=== PATIENT | female | born 1990 | race Caucasian/White ===

== ENCOUNTER 2017-04-28 07:34 | Outpatient (CLI) | payer OTHER ==
[~2017-04-28] VITALS: Ht 160 cm; Wt 65.8 kg
[2017-04-28 07:59] VITALS: BP 110/81
[2017-04-28] MEDS ORDERED: COSYNTROPIN 0.25 MG/ML (CORTROSYN) VIAL IV ONE (08:15)
[2017-04-28 10:03] VITALS: BP 110/81
== END 2017-04-28 10:03 | disposition home or self-care (01) ==
LOC: LAB 07:34 → SDC 10:03
PROVIDERS: ATTEND Internal Medicine
DX: I95.1 Orthostatic hypotension (principal); E27.8 Other specified disorders of adrenal gland
CPT/HCPCS: 36415; 82533; 96372

== ENCOUNTER → 2017-12-01 | Outpatient (CLI) | payer OTHER ==
[2017-12-01 15:24] LABS: ALANINE AMINOTRANSFERASE 13 U/L (0-55); ALBUMIN 4.2 GM/DL (3.2-4.5); ALKALINE PHOSPHATASE 39 U/L (40-136); BILIRUBIN,TOTAL 0.3 MG/DL (0.1-1.0); BUN/CREATININE RATIO 16; CARBON DIOXIDE 25 MMOL/L (21-32); CHLORIDE 107 MMOL/L (98-107); CREATININE SERUM 0.75 MG/DL (0.60-1.30); GFR ESTIMATED > 60; GLUCOSE 93 MG/DL (70-105); POTASSIUM 3.4 MMOL/L (3.6-5.0); SODIUM 137 MMOL/L (135-145)
[2017-12-01 15:45] LABS: FREE T4 (FREE THYROXINE) 0.96 NG/DL (0.70-1.48)
== END ==
LOC: LAB 14:27
PROVIDERS: ATTEND Nurse Practitioner Family
DX: E03.9 Hypothyroidism, unspecified (principal); Z33.1 Pregnant state, incidental
CPT/HCPCS: 36415; 80053; 84144; 84439; 84443; 84481; 84702; 86376; 86800

== ENCOUNTER → 2018-03-16 | Outpatient (CLI) | payer BC, OTHER ==
--- NOTE | 2018-03-16 17:38 | Diagnostic Imaging Report ---
INDICATION: anatomical assessment. TECHNIQUE: Multiple real-time grayscale images were obtained over the gravid uterus. COMPARISON: None. FINDINGS: Single viable intrauterine currently in a breech presentation. There is normal amount of amniotic fluid. Placenta is positioned anteriorly and without evidence for previa. anatomical structures including the visualized portion of the kidneys, bladder, stomach, intracranial structures, four-chamber heart, three-vessel cord and cord insertion site appearing unremarkable. However, the spine is not well visualized. Maternal adnexa not visualized. Biometrical measurements are as follows: Biparietal 4.77 cm, age 20 weeks 3 days. Head circumference 18.34 cm, age 20 weeks 5 days. Abdominal circumference 15.09 cm, age 20 weeks 3 days. Femur length 3.30 cm, age 20 weeks 3 days. Sonographic estimate age: 20 weeks 4 days. Sonographic estimated date of delivery: 07/30/2018. Estimated Weight: 349 gm (+/- 51 gm). LMP percentile: 67%. heart rate: 139 beats per minute. number: 1 of 1. IMPRESSION: 1. Single viable intrauterine currently in a breech presentation. Sonographic estimated age 20 weeks 4 days for an estimated date of delivery 07/30/2018. 2. No abnormalities noted at this time. However, the spine is not well evaluated at this time. Dictated by: Dictated on workstation # [id number]
== END ==
LOC: RAD 15:09
PROVIDERS: ATTEND Obstetrics & Gynecology
DX: Z36.89 Encounter for other specified antenatal screening (principal); Z3A.20 20 weeks gestation of pregnancy
CPT/HCPCS: 76805

== ENCOUNTER 2018-07-27 09:33 | Outpatient (CLI) | payer BC ==
[~2018-07-27] VITALS: Ht 160 cm; Wt 89.5 kg
--- NOTE | 2018-07-27 09:27 | NUR ---
Arrived to unit ambulates self with c/o decreased movement. Wt obtained and to room 319. gowned and urine sample obtained. to bed and monitors on. Oriented to room, call light and surroundings. Plan of care reviewed with pt.
[2018-07-27] MEDS ORDERED: PREN-53 PO (10:00)
[2018-07-27] MEDS ORDERED: LEVO75TA PO (10:00)
--- NOTE | 2018-07-27 10:04 | NUR ---
Dr Carter called and notified of pt arrival, contractions, fhr pattern, sve. Will monitor over next hour and re-check cervix. Plan of care reviewed with pt.
--- NOTE | 2018-07-27 11:08 | NUR ---
Dr Carter notified of repeat sve, contractions, fhr pattern reactive. new order received.
--- NOTE | 2018-07-27 11:10 | NUR ---
Options discussed with pt and mother. pt requests discharge to home.
--- NOTE | 2018-07-27 11:20 | NUR ---
Discharge instructions explained, signed and copy to patient. pt verbalized understanding of instructions and questions answered.
--- NOTE | 2018-07-27 11:25 | NUR ---
Discharged to home. ambulates self downstairs with belongings in hand. Downstairs to private vehicle with belongings in hand.
== END 2018-07-27 11:25 | disposition home or self-care (01) ==
LOC: WSo 09:33 → LDRP 09:33 → WSo 11:25
PROVIDERS: ATTEND Obstetrics & Gynecology
DX: O36.8130 Decreased fetal movements, third trimester, not applicable or unspecified (principal); Z3A.39 39 weeks gestation of pregnancy
CPT/HCPCS: 99213

== ENCOUNTER 2018-08-02 06:40 | Inpatient (IN) | payer BC ==
[~2018-08-02] VITALS: Ht 160 cm; Wt 87.7 kg
[2018-08-02] VITALS (66 sets, daily range): BP systolic 91–137; BP diastolic 46–87
[~2018-08-02 06:40] MED LIST: LEVO75TA PO; PREN-53 PO
--- NOTE | 2018-08-02 06:40 | NUR ---
MACARIO PATEL presented to unit via ambulation from ED/home, accompanied by , for INDUCTION. MACARIO PATEL weighed, gowned, voided, and to bed. EFHM and TOCO applied, VS taken. MACARIO PATEL oriented to bed controls, call light, TV, heat, and A/C controls.
--- OUTSIDE RECORDS SUMMARY | 2018-08-02 06:44 | XMS REPORT ---
Author Author BETITO NAVA [facility] Address [address] [place] [address] Care Team Providers Care Barrel Charrer Name Role Phone ELIJAH BETITO Unavailable PROBLEMS Type Condition ICD9-CM Code [id number] Code Onset Dates Condition Status SNOMED Code Problem Missed period N92.6 Active 93908511 Problem BLADIMIR II (cervical intraepithelial neoplasia II) N87.1 Active 558971040 Problem Cervical high risk human papillomavirus (HPV) DNA test positive R87.810 Active 942761437 Problem Acquired hypothyroidism E03.9 Active 044010704 ALLERGIES No Information ENCOUNTERS Encounter Location Date Diagnosis [facility] [id number] [place] [phone] Dec, Encounter for immunization Z23 [facility] [id number] [place] [id number] 10 Nov, 2017 Missed period N92.6 [facility] [id number] [place] [phone] 16 Jul, 2017 [facility] [id number] [place] [phone] 15 Jul, 2017 BLADIMIR II (cervical intraepithelial neoplasia II) N87.1 and Right lower quadrant abdominal pain R10.31 [facility] [address] [place] [id number] 14 Jul, 2017 Right lower quadrant abdominal pain R10.31 [facility] [id number] [place] [phone] 02 Jul, 2017 [facility] [address] [place] [phone] Jun, Cervical high risk human papillomavirus (HPV) DNA test positive R87.810 and Atypical squamous cells of undetermined significance on cytologic smear of cervix (ASC-US) R87.610 [facility] [address] [facility] [id number] [address] 30 May, 2017 Encounter for surveillance of contraceptive pills Z30.41 [facility] [address] [facility] [id number], [place] [address] May, Well woman exam with routine gynecological exam Z01.419 and Encounter for surveillance of contraceptive pills Z30.41 [facility] [address] [facility] [id number] [id number] Feb, Acute pansinusitis, recurrence not specified J01.40 IMMUNIZATIONS Vaccine Route Administration Date Status FLULAVAL QUAD 0.5ML (6 MO & UP) 2018 IM Intramuscular Jan 03, 2018 Administered SOCIAL HISTORY Never Assessed REASON FOR VISIT Flu shot PLAN OF CARE VITAL SIGNS MEDICATIONS Unknown Medications RESULTS No Results PROCEDURES Procedure Date Ordered Result Body Site FLULAVAL QUAD 0.5ML (6 MO AND UP) 2017Jan 03, 2018 SINGLE IMMUNIZATION ADMIN Jan 03, 2018 INSTRUCTIONS MEDICATIONS ADMINISTERED No Known Medications MEDICAL (GENERAL) HISTORY Type Description Date Medical History hypothryroid
--- OUTSIDE RECORDS SUMMARY | 2018-08-02 06:44 | XMS REPORT ---
Author Author ELDA FERGUSON Organization [facility] Address [address] [place] [address] Care Team Providers Care Board Hammer Operator Name Role Phone ELDA FERGUSON Unavailable PROBLEMS Type Condition ICD9-CM Code [id number]-UQ Code Onset Dates Condition Status SNOMED Code Problem Missed period N92.6 Active 03883092 Problem BLADIMIR II (cervical intraepithelial neoplasia II) N87.1 Active 084497441 Problem Cervical high risk human papillomavirus (HPV) DNA test positive R87.810 Active 502261892 Problem Acquired hypothyroidism E03.9 Active 096701089 ALLERGIES No Information ENCOUNTERS Encounter Location Date Diagnosis [facility] [id number] [id number] Nov, Missed period N92.6 [facility] [address] [address] July, [facility] [id number] [place] [address] 15 Jul, 2017 BLADIMIR II (cervical intraepithelial neoplasia II) N87.1 and Right lower quadrant abdominal pain R10.31 [facility] [id number] [id number] July, Right lower quadrant abdominal pain R10.31 [facility] [address] [address] July, [facility] [id number] [place] [address] Jun, Cervical high risk human papillomavirus (HPV) DNA test positive R87.810 and Atypical squamous cells of undetermined significance on cytologic smear of cervix (ASC-US) R87.610 [facility] [id number] [address] 30 May, 2017 Encounter for surveillance of contraceptive pills Z30.41 [facility] [address] [facility] [id number], [place] [address] May, Well woman exam with routine gynecological exam Z01.419 and Encounter for surveillance of contraceptive pills Z30.41 [facility] [address] [facility] [id number] [id number] Feb, Acute pansinusitis, recurrence not specified J01.40 IMMUNIZATIONS No Known Immunizations SOCIAL HISTORY Never Assessed REASON FOR VISIT test-[facility] [employer]NAGER [employer]/HOME IMPROVEMENT ADVISOR PLAN OF CARE VITAL SIGNS MEDICATIONS Unknown Medications RESULTS Name Result Date Reference Range TEST, URINE (IN HOUSE) RESULTS positive Lot # [id number] Control + Exp date 2019-06-13 PROCEDURES Procedure Date Ordered Result Body Site URINE TEST Nov 22, 2017 INSTRUCTIONS MEDICATIONS ADMINISTERED No Known Medications MEDICAL (GENERAL) HISTORY Type Description Date Medical History hypothryroid
--- OUTSIDE RECORDS SUMMARY | 2018-08-02 06:44 | XMS REPORT ---
Author Author DAYA Garcia [facility] Address [address] [place] [address] Care Team Providers Care Video Production Assistant Name Role Phone DAYA Garcia Unavailable PROBLEMS Type Condition ICD9-CM Code RCF61-SI Code Onset Dates Condition Status SNOMED Code Problem BLADIMIR II (cervical intraepithelial neoplasia II) N87.1 Active 201489664 Problem Cervical high risk human papillomavirus (HPV) DNA test positive R87.810 Active 548674155 Problem Acquired hypothyroidism E03.9 Active 100600529 ALLERGIES No Information ENCOUNTERS Encounter Location Date Diagnosis [place] [id number] [place] [address] July, [place] [id number] [place] [address] July, BLADIMIR II (cervical intraepithelial neoplasia II) N87.1 and Right lower quadrant abdominal pain R10.31 [facility] [id number] [place] [id number] July, Right lower quadrant abdominal pain R10.31 [place] [id number] [place] [address] July, [place] [id number] [place] [address] Jun, Cervical high risk human papillomavirus (HPV) DNA test positive R87.810 and Atypical squamous cells of undetermined significance on cytologic smear of cervix (ASC-US) R87.610 [place] [id number] [place] [address] May, Encounter for surveillance of contraceptive pills Z30.41 [place] [id number] [place] [address] May, Well woman exam with routine gynecological exam Z01.419 and Encounter for surveillance of contraceptive pills Z30.41 [facility] [address] [facility] [id number] [place] [phone] Feb, Acute pansinusitis, recurrence not specified J01.40 IMMUNIZATIONS No Known Immunizations SOCIAL HISTORY Never Assessed REASON FOR VISIT urinary sx PLAN OF CARE VITAL SIGNS MEDICATIONS Medication Instructions Dosage Frequency Start Date End Date Duration Status Cipro 500 MG Orally every 12 hrs 1 tablet 12h July, July, 10 day(s) Active RESULTS No Results PROCEDURES No Known procedures INSTRUCTIONS MEDICATIONS ADMINISTERED No Known Medications MEDICAL (GENERAL) HISTORY Type Description Date Medical History hypothryroid
--- OUTSIDE RECORDS SUMMARY | 2018-08-02 06:44 | XMS REPORT ---
Author Author GINNY JAK [facility] Address [address] [place] [address] Care Team Providers Care Armature Inspector Name Role Phone GINNYMARCEL BLAIRHANY Unavailable PROBLEMS Type Condition ICD9-CM Code CWO81-[id number] Code Onset Dates Condition Status SNOMED Code Problem BLADIMIR II (cervical intraepithelial neoplasia II) N87.1 Active 626149590 Problem Cervical high risk human papillomavirus (HPV) DNA test positive R87.810 Active 422201322 Problem Acquired hypothyroidism E03.9 Active 892231723 ALLERGIES No Known Allergies ENCOUNTERS Encounter Location Date Diagnosis [place] [id number] [place] [phone] July, [place] [address] [phone] 15 Jul, 2017 BLADIMIR II (cervical intraepithelial neoplasia II) N87.1 and Right lower quadrant abdominal pain R10.31 [facility] [id number] [place] [phone] July, Right lower quadrant abdominal pain R10.31 [place] [id number] [place] [address] July, [place] [address] [address] Jun, Cervical high risk human papillomavirus (HPV) DNA test positive R87.810 and Atypical squamous cells of undetermined significance on cytologic smear of cervix (ASC-US) R87.610 [place] [id number] [place] [address] May, Encounter for surveillance of contraceptive pills Z30.41 [place] [id number] [place] [address] May, Well woman exam with routine gynecological exam Z01.419 and Encounter for surveillance of contraceptive pills Z30.41 [facility] [address] [facility] [id number] [place] [phone] Feb, Acute pansinusitis, recurrence not specified J01.40 IMMUNIZATIONS No Known Immunizations SOCIAL HISTORY Never Assessed REASON FOR VISIT BLADIMIR 2--tcuppettRN PLAN OF CARE Activity Details Follow Up 4 Weeks Reason: VITAL SIGNS Height 63.5 in 2017-07-27 Weight 146.1 lbs 2017-07-27 Temperature 98.5 degrees Fahrenheit 2017-07-27 Heart Rate 76 bpm 2017-07-27 Respiratory Rate 20 2017-07-27 BMI 25.47 kg/m2 2017-07-27 Blood pressure systolic 110 mmHg 2017-07-27 Blood pressure diastolic 70 mmHg 2017-07-27 MEDICATIONS Medication Instructions Dosage Frequency Start Date End Date Duration Status Sprintec 28 0.25-35 MG-MCG Orally Once a day 1 tablet 24h May, 28 day(s) Active Levothyroxine Sodium 25 MCG Orally Once a day 1 tablet on an empty stomach in the morning 24h Active RESULTS No Results PROCEDURES No Known procedures INSTRUCTIONS MEDICATIONS ADMINISTERED No Known Medications MEDICAL (GENERAL) HISTORY Type Description Date Medical History hypothryroid
--- OUTSIDE RECORDS SUMMARY | 2018-08-02 06:45 | XMS REPORT ---
Author Author GINNY JAK [facility] Address [address] [place] [address] Care Team Providers Care Regional Property Manager Name Role Phone GINNYMARCEL BLAIRHANY Unavailable PROBLEMS Type Condition ICD9-CM Code [id number]-[id number] Code Onset Dates Condition Status SNOMED Code Problem BLADIMIR II (cervical intraepithelial neoplasia II) N87.1 Active 614223238 Problem Cervical high risk human papillomavirus (HPV) DNA test positive R87.810 Active 148543949 Problem Acquired hypothyroidism E03.9 Active 740043205 ALLERGIES No Information ENCOUNTERS Encounter Location Date Diagnosis [place] [id number] [place] [address] July, [place] [address] [address] 15 Jul, 2017 BLADIMIR II (cervical intraepithelial neoplasia II) N87.1 and Right lower quadrant abdominal pain R10.31 [facility] [id number] [place] [phone] July, Right lower quadrant abdominal pain R10.31 [place] [id number] [place] [address] July, [place] [address] [address] Jun, Cervical high risk human papillomavirus (HPV) DNA test positive R87.810 and Atypical squamous cells of undetermined significance on cytologic smear of cervix (ASC-US) R87.610 [place] [id number] [place] [address] May, Encounter for surveillance of contraceptive pills Z30.41 [facility] [id number] [place] [address] May, Well woman exam with routine gynecological exam Z01.419 and Encounter for surveillance of contraceptive pills Z30.41 [facility] [address] [facility] [id number] [place] [phone] Feb, Acute pansinusitis, recurrence not specified J01.40 IMMUNIZATIONS No Known Immunizations SOCIAL HISTORY Never Assessed REASON FOR VISIT Revenue Accountant Hx Updated PLAN OF CARE VITAL SIGNS MEDICATIONS Unknown Medications RESULTS No Results PROCEDURES No Known procedures INSTRUCTIONS MEDICATIONS ADMINISTERED No Known Medications MEDICAL (GENERAL) HISTORY Type Description Date Medical History hypothryroid
--- OUTSIDE RECORDS SUMMARY | 2018-08-02 06:45 | XMS REPORT ---
Author Author SERAFIN STONE [facility] Address [address] [place] [address] Care Team Providers Care Liner Replacer Name Role Phone SERAFIN STONE Unavailable PROBLEMS Type Condition ICD9-CM Code KTH84-SP Code Onset Dates Condition Status SNOMED Code Problem BLADIMIR II (cervical intraepithelial neoplasia II) N87.1 Active 134295009 Problem Cervical high risk human papillomavirus (HPV) DNA test positive R87.810 Active 596601583 Problem Acquired hypothyroidism E03.9 Active 376196616 ALLERGIES No Known Allergies ENCOUNTERS Encounter Location Date Diagnosis [id number] [place] [address] July, [place] [id number] [place] [address] July, BLADIMIR II (cervical intraepithelial neoplasia II) N87.1 and Right lower quadrant abdominal pain R10.31 [facility] [id number] [place] [id number] July, Right lower quadrant abdominal pain R10.31 [place] [address] [place] [address] July, [facility] [id number] [place] [address] Jun, Cervical high risk human papillomavirus (HPV) DNA test positive R87.810 and Atypical squamous cells of undetermined significance on cytologic smear of cervix (ASC-US) R87.610 [place] [id number] [place] [address] May, Encounter for surveillance of contraceptive pills Z30.41 [place] [id number] [place] [address] May, Well woman exam with routine gynecological exam Z01.419 and Encounter for surveillance of contraceptive pills Z30.41 [facility] [address] [facility] [id number] [place] [phone] Feb, Acute pansinusitis, recurrence not specified J01.40 IMMUNIZATIONS No Known Immunizations SOCIAL HISTORY Never Assessed REASON FOR VISIT pap/ control JStrasserRN PLAN OF CARE Activity Details Follow Up prn Reason: Pending Test PAP REFLEX TO HPV IF ASCUS VITAL SIGNS Height 63.5 in 2017-06-10 Weight 139.2 lbs 2017-06-10 Temperature 98.2 degrees Fahrenheit 2017-06-10 Heart Rate 80 bpm 2017-06-10 Respiratory Rate 20 2017-06-10 BMI 24.27 kg/m2 2017-06-10 Blood pressure systolic 100 mmHg 2017-06-10 Blood pressure diastolic 70 mmHg 2017-06-10 MEDICATIONS Medication Instructions Dosage Frequency Start Date End Date Duration Status [place] Thyroid Active Sprintec 28 0.25-35 MG-MCG Orally Once a day 1 tablet 24h May, 28 day(s) Active Sprintec 28 Active RESULTS No Results PROCEDURES Procedure Date Ordered Result Body Site Bacterial Vaginosis In House June 10, 2017 CULTURE, BACTERIA, OTHER June 10, 2017 SPECIMEN HANDLING June 10, 2017 INSTRUCTIONS MEDICATIONS ADMINISTERED No Known Medications MEDICAL (GENERAL) HISTORY Type Description Date Medical History hypothryroid
--- OUTSIDE RECORDS SUMMARY | 2018-08-02 06:45 | XMS REPORT ---
Author Author SERAFIN STONE [facility] Address [address] [place] [address] Care Team Providers Care Screen Printing Supervisor Name Role Phone SERAFIN STONE Unavailable PROBLEMS Type Condition ICD9-CM Code PJM27-RE Code Onset Dates Condition Status SNOMED Code Problem BLADIMIR II (cervical intraepithelial neoplasia II) N87.1 Active 155595471 Problem Cervical high risk human papillomavirus (HPV) DNA test positive R87.810 Active 545912722 Problem Acquired hypothyroidism E03.9 Active 276547063 ALLERGIES No Information ENCOUNTERS Encounter Location Date Diagnosis [place] [id number] [place] [address] July, [place] [address] [address] 15 Jul, 2017 BLADIMIR II (cervical intraepithelial neoplasia II) N87.1 and Right lower quadrant abdominal pain R10.31 [facility] [id number] [place] [phone] July, Right lower quadrant abdominal pain R10.31 [place] [id number] [place] [address] July, [facility] [id number] [place] [address] Jun, Cervical high risk human papillomavirus (HPV) DNA test positive R87.810 and Atypical squamous cells of undetermined significance on cytologic smear of cervix (ASC-US) R87.610 [place] [address] [place] [address] May, Encounter for surveillance of contraceptive pills Z30.41 [facility] [id number] [place] [address] May, Well woman exam with routine gynecological exam Z01.419 and Encounter for surveillance of contraceptive pills Z30.41 [facility] [place] [facility] [place] [address] [facility] [id number] [place] [phone] Feb, Acute pansinusitis, recurrence not specified J01.40 IMMUNIZATIONS No Known Immunizations SOCIAL HISTORY Never Assessed REASON FOR VISIT medication PLAN OF CARE VITAL SIGNS MEDICATIONS Medication Instructions Dosage Frequency Start Date End Date Duration Status Metronidazole 500 mg Orally Twice a day 1 tablet 12h May, Jun, 10 day(s) Active Sprintec 28 0.25-35 MG-MCG Orally Once a day 1 tablet 24h May, 28 day(s) Active RESULTS No Results PROCEDURES No Known procedures INSTRUCTIONS MEDICATIONS ADMINISTERED No Known Medications MEDICAL (GENERAL) HISTORY Type Description Date Medical History hypothryroid
--- OUTSIDE RECORDS SUMMARY | 2018-08-02 06:45 | XMS REPORT ---
Author Author DAYA CLINE [facility] Address [address] [place] [address] Care Team Providers Care Glass Calibrator Name Role Phone LAWRENCE CLINEYL Unavailable PROBLEMS Type Condition ICD9-CM Code [id number] Code Onset Dates Condition Status SNOMED Code Problem BLADIMIR II (cervical intraepithelial neoplasia II) N87.1 Active 480935079 Problem Cervical high risk human papillomavirus (HPV) DNA test positive R87.810 Active 746168186 Problem Acquired hypothyroidism E03.9 Active 629627041 ALLERGIES No Known Allergies ENCOUNTERS Encounter Location Date Diagnosis [place] [id number] [place] [phone] July, [place] [id number] [place] [phone] 15 Jul, 2017 BLADIMIR II (cervical intraepithelial neoplasia II) N87.1 and Right lower quadrant abdominal pain R10.31 [facility] [id number] [place] [phone] July, Right lower quadrant abdominal pain R10.31 [place] [id number] [place] [phone] July, [place] [id number] [place] [phone] Jun, Cervical high risk human papillomavirus (HPV) DNA test positive R87.810 and Atypical squamous cells of undetermined significance on cytologic smear of cervix (ASC-US) R87.610 [place] [id number] [place] [phone] May, Encounter for surveillance of contraceptive pills Z30.41 [place] [id number] [place] [phone] May, Well woman exam with routine gynecological exam Z01.419 and Encounter for surveillance of contraceptive pills Z30.[address] [facility] [address] [facility] [id number] [place] [phone] Feb, Acute pansinusitis, recurrence not specified J01.40 IMMUNIZATIONS Vaccine Route Administration Date Status DEPO MEDROL 80 MG/ML IM Intramuscular Mar 01, 2017 Administered SOCIAL HISTORY Never Assessed REASON FOR VISIT sinus drainage/sore throat Garrett LOPEZ PLAN OF CARE Activity Details Follow Up prn Reason: VITAL SIGNS Height 63.5 in 2017-03-01 Weight 149.0 lbs 2017-03-01 Temperature 98.7 degrees Fahrenheit 2017-03-01 Heart Rate 75 bpm 2017-03-01 Respiratory Rate 18 2017-03-01 BMI 25.98 kg/m2 2017-03-01 Blood pressure systolic 98 mmHg 2017-03-01 Blood pressure diastolic 56 mmHg 2017-03-01 MEDICATIONS Medication Instructions Dosage Frequency Start Date End Date Duration Status Sprintec 28 Active Williamson Thyroid Active RESULTS No Results PROCEDURES Procedure Date Ordered Result Body Site DEPO MEDROL 80 MG/ML Mar 01, 2017 THER/PROPH/DIAG INJ, SC/IM Mar 01, 2017 INSTRUCTIONS MEDICATIONS ADMINISTERED No Known Medications MEDICAL (GENERAL) HISTORY Type Description Date Medical History hypothryroid
--- OUTSIDE RECORDS SUMMARY | 2018-08-02 06:45 | XMS REPORT ---
Author Author GINNY JAK [facility] Address [address] [place] [address] Care Team Providers Care Cat And Dog Bather Name Role Phone GINNYMARCEL BLAIRHANY Unavailable PROBLEMS Type Condition ICD9-CM Code [id number] Code Onset Dates Condition Status SNOMED Code Problem BLADIMIR II (cervical intraepithelial neoplasia II) N87.1 Active 998091421 Problem Cervical high risk human papillomavirus (HPV) DNA test positive R87.810 Active 038234752 Problem Acquired hypothyroidism E03.9 Active 342499930 ALLERGIES No Known Allergies ENCOUNTERS Encounter Location Date Diagnosis [place] [id number] [place] [phone] July, [place] [address] [phone] 15 Jul, 2017 BLADIMIR II (cervical intraepithelial neoplasia II) N87.1 and Right lower quadrant abdominal pain R10.31 [facility] [id number] [place] [phone] July, Right lower quadrant abdominal pain R10.31 [place] [id number] [place] [phone] July, [place] [address] [phone] Jun, Cervical high risk human papillomavirus (HPV) DNA test positive R87.810 and Atypical squamous cells of undetermined significance on cytologic smear of cervix (ASC-US) R87.610 [place] [id number] [place] [phone] May, Encounter for surveillance of contraceptive pills Z30.41 [place] [id number] [place] [phone] May, Well woman exam with routine gynecological exam Z01.419 and Encounter for surveillance of contraceptive pills Z30.41 [facility] [place] [facility] [place] [address] [facility] [id number] [place] [phone] Feb, Acute pansinusitis, recurrence not specified J01.40 IMMUNIZATIONS No Known Immunizations SOCIAL HISTORY Never Assessed REASON FOR VISIT ASCUS , HPV +---CarleyleachVT PLAN OF CARE Activity Details Follow Up prn Reason: VITAL SIGNS Height 63.5 in 2017-07-07 Weight 143.2 lbs 2017-07-07 Temperature 98.5 degrees Fahrenheit 2017-07-07 Heart Rate 90 bpm 2017-07-07 Respiratory Rate 20 2017-07-07 BMI 24.97 kg/m2 2017-07-07 Blood pressure systolic 114 mmHg 2017-07-07 Blood pressure diastolic 78 mmHg 2017-07-07 MEDICATIONS Medication Instructions Dosage Frequency Start Date End Date Duration Status Sprintec 28 0.25-35 MG-MCG Orally Once a day 1 tablet 24h May, 28 day(s) Active Levothyroxine Sodium 25 MCG Orally Once a day 1 tablet on an empty stomach in the morning 24h Active RESULTS No Results PROCEDURES Procedure Date Ordered Result Body Site URINE TEST July 07, 2017 BX/CURETT OF CERVIX W/SCOPE July 07, 2017 INSTRUCTIONS MEDICATIONS ADMINISTERED No Known Medications MEDICAL (GENERAL) HISTORY Type Description Date Medical History hypothryroid
--- OUTSIDE RECORDS SUMMARY | 2018-08-02 06:45 | XMS REPORT ---
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.1 Active 897275363 Problem Cervical high risk human papillomavirus (HPV) DNA test positive R87.810 Active 197475983 Problem Acquired hypothyroidism E03.9 Active 891460515 ALLERGIES No Known Allergies ENCOUNTERS Encounter Location Date Diagnosis [place] [id number] [place] [phone] July, [place] [id number] [place] [phone] 15 Jul, 2017 BLADIMIR II (cervical intraepithelial neoplasia II) N87.1 and Right lower quadrant abdominal pain R10.31 [facility] [id number] [place] [phone] 14 Jul, 2017 Right lower quadrant abdominal pain R10.31 [place] [id number] [place] [phone] July, [place] [id number] [place] [phone] Jun, Cervical high risk human papillomavirus (HPV) DNA test positive R87.810 and Atypical squamous cells of undetermined significance on cytologic smear of cervix (ASC-US) R87.610 [place] [id number] [place] [phone] May, Encounter for surveillance of contraceptive pills Z30.41 [place] [id number] [place] [phone] May, Well woman exam with routine gynecological exam Z01.419 and Encounter for surveillance of contraceptive pills Z30.41 [facility] [place] [facility] [place] [address] [facility] [id number] [place], [place] [id number] Feb, Acute pansinusitis, recurrence not specified J01.40 IMMUNIZATIONS No Known Immunizations SOCIAL HISTORY Never Assessed REASON FOR VISIT R lower quadrant pain-[facility] 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 OF CARE Activity Details Follow Up 2 - 3 Days Reason: VITAL SIGNS Height 63.5 in 2017-07-26 Weight 145 lbs 2017-07-26 Temperature 98 degrees Fahrenheit 2017-07-26 Heart Rate 82 bpm 2017-07-26 Respiratory Rate 18 2017-07-26 BMI 25.28 kg/m2 2017-07-26 Blood pressure systolic 120 mmHg 2017-07-26 Blood pressure diastolic 68 mmHg 2017-07-26 MEDICATIONS Medication Instructions Dosage Frequency Start Date End Date Duration Status Levothyroxine Sodium 25 MCG Orally Once a day 1 tablet on an empty stomach in the morning 24h Active Sprintec 28 0.25-35 MG-MCG Orally Once a day 1 tablet 24h May, 28 day(s) Active RESULTS No Results PROCEDURES Procedure Date Ordered Result Body Site URINE CULTURE/COLONY COUNT July 26, 2017 URINALYSIS, AUTO, W/O SCOPE July 26, 2017 INSTRUCTIONS MEDICATIONS ADMINISTERED No Known Medications MEDICAL (GENERAL) HISTORY Type Description Date Medical History hypothryroid
[2018-08-02] MEDS ORDERED: D5 LR IV SOLUTION 1,000 ML IV ONE (08:11)
[2018-08-02] MEDS: D5 LR IV SOLUTION 1,000 ML IV SCH ×3 (08:15→23:52)
--- NOTE | 2018-08-02 08:16 | History & Physical-OB ---
OB - Chief Complaint & HPI Date/Time Date of Admission: Date of Admission: August 02, 2018 at 06:40 Date seen by a Provider: August 02, 2018 Time Seen by a Provider: 08:00 Chief Complaint/History OB-Reason for Admission/Chief: Induction of Labor Hx : 2 Hx Para: 1 Expected Date of Delivery: August 03, 2018 Gestational Age in Weeks: 39 Gestational Age in Days: 6 Admission Nurse Assessment Rev: Yes History of Labs see prenatals Allergies and Home Medications Allergies Coded Allergies: No Known Drug Allergies (Verified , 10/22/08) Home Medications Levothyroxine Sodium 75 Mcg Tablet, 75 MCG PO DAILY, (Reported) Odz182/Iron Fumarate/FA/Dss 1 Each Tablet, 1 EACH PO DAILY, (Reported) Patient Home Medication List Home Medication List Reviewed: Yes OB - History Hx of Present Care: Yes Ultrasounds: Normal mid trimester US Obstetrical Complications: None Medical Complications: None Delivery History Hx Blood Disorders: No Patient Past Medical History n/a OB - Admission Exam Physical Exam HEENT: NCAT Heart: Rhythm Normal Lungs: Clear Abdomen: Gravid Extremities: Normal Reflexes: Normal Cervical Dilatation: 3cm Effacement: 75% Station: -2 Membranes: Intact Heart Rate: 130's Accelerations: Accelerations Present Decelerations: No Decelerations Short Term Variability: Present Care Home Variability: Average (6-25) Contractions on Admission: 6-10 Minutes Apart Intensity: Moderate OB - Assessment/Plan/Diagnosis Assessment Assessment: induction of labor Admission Dx 28 yo @ 39 weeks Elective induction of labor GBS neg Admission Status: Inpatient Order (span 2 midnights) Reason for Inpatient Admission: Induction of labor at term Plan Induction Method: LIDIA GRANADOS DO August 02, 2018 08:16
[2018-08-02 08:30] LABS: BASOPHILS % (AUTO) 0 % (0-10); EOSINOPHILS # (AUTO) 0.1 10^3/uL (0.0-0.3); EOSINOPHILS % (AUTO) 1 % (0-10); HEMATOCRIT 31 % (35-52); HEMOGLOBIN 9.9 G/DL (11.5-16.0); LYMPHOCYTES # (AUTO) 2.1 X 10^3 (1.0-4.0); LYMPHOCYTES % (AUTO) 20 % (12-44); MEAN CORPUSCULAR HEMOGLOBIN 23 PG (25-34); MEAN CORPUSCULAR HGB CONC 32 G/DL (32-36); MEAN CORPUSCULAR VOLUME 71 FL (80-99); MEAN PLATELET VOLUME 9.7 FL (7.4-10.4); MONOCYTES # (AUTO) 0.7 X 10^3 (0.0-1.0); MONOCYTES % (AUTO) 7 % (0-12); NEUTROPHILS # (AUTO) 7.2 X 10^3 (1.8-7.8); NEUTROPHILS % (AUTO) 72 % (42-75); PLATELET COUNT 248 10^3/uL (130-400); RED CELL DISTRIBUTION WIDTH 15.1 % (10.0-14.5); WHITE BLOOD COUNT 10.1 10^3/uL (4.3-11.0)
[2018-08-02] MEDS ORDERED: OXYTOCIN/NORMAL SALINE 500 ML IV SCH (10:58)
[2018-08-02] MEDS ORDERED: CATHETER FLUSH 10 ML SYR IV SCH (14:00)
[2018-08-02] MEDS ORDERED: BUPIVACAINE 0.25% 30 ML (SENSORCAINE) VIAL ONE (14:55)
[2018-08-02] MEDS ORDERED: fentaNYL INJECTION 100 MCG/2 ML AMP ONE (14:55)
[2018-08-02] MEDS ORDERED: SUFENTA 0.6MCG/ML BUPIVA 0.125 100 ML ONE (15:00)
[2018-08-02] MEDS ORDERED: LACTATED RINGERS 1,000 ML IV ONE (15:01)
[2018-08-02] MEDS ORDERED: CATHETER FLUSH 10 ML SYR IV PRN (15:15)
[2018-08-02] MEDS ORDERED: NALOXONE 0.4 MG/ML 1 ML (NARCAN) VIAL IV PRN (15:15)
[2018-08-02] MEDS: EPIDURAL (SUFENTA 0.6MCG/ML BUPIVA 0.125%) 100 ML BAG EPI SCH (15:38)
[2018-08-02] MEDS ORDERED: CALCIUM CARBONATE 500 MG (TUMS) TAB.CHEW PO NR (17:00)
[2018-08-03] VITALS (28 sets, daily range): BP systolic 102–147; BP diastolic 58–96
[2018-08-03] MEDS ORDERED: CALCIUM CARBONATE 500 MG (TUMS) TAB.CHEW PO ONE (01:00)
[2018-08-03] MEDS: EPIDURAL (SUFENTA 0.6MCG/ML BUPIVA 0.125%) 100 ML BAG EPI SCH (01:30)
[2018-08-03] MEDS ORDERED: LIDOCAINE/EPI 2% 1:200,00 (XYLOCAINE) 10 ML VIAL ONE (02:08)
[2018-08-03] MEDS ORDERED: TERBUTALINE INJ 1 MG/ML (BRETHINE) AMP ONE (03:20)
[2018-08-03] MEDS: LACTATED RINGERS 1,000 ML IV PRN ×2 (03:25→04:20)
[2018-08-03] MEDS ORDERED: AMPICILLIN FOR IV USE 2,000 MG VIAL ONE (03:31)
[2018-08-03] MEDS ORDERED: ceFAZolin 2 GM/50 ML NS 50 ML ONE (03:32)
[2018-08-03] MEDS ORDERED: CITRIC ACID/SOB CIT (BICITRA) 30 ML UDC ONE (03:33)
[2018-08-03] MEDS ORDERED: FAMOTIDINE 20MG/2ML IV (PEPCID) ONE (03:33)
[2018-08-03] MEDS ORDERED: METOCLOPRAMIDE INJ 10 MG/2 ML (REGLAN) ONE (03:33)
--- NOTE | 2018-08-03 03:45 | Progress Note-Pre Operative ---
Pre-Operative Progress Note H&P Reviewed The H&P was reviewed, patient examined and no changes noted. Date Seen by Provider: August 03, 2018 Time Seen by Provider: 03:00 Date H&P Reviewed: August 03, 2018 Time H&P Reviewed: 03:00 Pre-Operative Diagnosis: intolerance of 2nd stage labor, OP LIDIA BEVERLY DO August 03, 2018 03:45
[2018-08-03] MEDS ORDERED: OXYTOCIN/NORMAL SALINE 500 ML IV SCH (03:48)
--- NOTE | 2018-08-03 03:56 | Discharge Inst-Women's Service ---
Discharge Inst-Women's Serv Depart Medication/Instructions New, Converted or Re-Newed RX: RX on Chart Final Diagnosis POD 2 PLTCS Consults/Follow Up Additional Follow Up: Yes Orders/Referrals Dr. Carter in 7-10 days, and in 6 weeks. Activity Activity: Activity as Tolerated Driving Instructions: No Driving for 1 Week NO SMOKING: NO SMOKING Nothing Inside Vagina: No Douching, No [place], No Tampons Diet Discharge Diet: No Restrictions Symptoms to Report to : Bleeding Excessive, Pain Increased, Fever Over 101 Degrees F, Questions/Concerns For Any Problems or Questions: Contact Your Physician Skin/Wound Care Infection Signs and Symptoms: Increased Redness, Foul Odor of Wound, Increased Drainage, Skin Itchy or Has a Rash, Increased Swelling, Temperature Above 101 F Operative Area Clean and Dry: Keep Incision Clean/Dry Stitches/Holly/Dermabond: Dermabond, Care of Stitches Bathing Instructions: LIDIA Brock DO August 03, 2018 03:56
[2018-08-03] MEDS ORDERED: fentaNYL INJECTION 100 MCG/2 ML AMP ONE (03:57)
[2018-08-03] MEDS ORDERED: ACHD5005 PO (03:59)
[2018-08-03] MEDS ORDERED: IBUP-844 PO (03:59)
[2018-08-03] MEDS ORDERED: DOCU100C37 PO (03:59)
[2018-08-03] MEDS ORDERED: TETANUS,DIPTH,PERTUSS P/F (BOOSTRIX) 0.5 ML VIAL IM SCH (04:00)
[2018-08-03] MEDS ORDERED: MEASLES,MUMPS,RUBELLA 1 EA INJ SC SCH (04:00)
[2018-08-03] MEDS ORDERED: ceFAZolin 2 GM/50 ML NS 50 ML IV ONE (04:00)
[2018-08-03] MEDS ORDERED: BUPIVACAINE 0.5% 30 ML (SENSORCAINE) VIAL ONE (04:12)
[2018-08-03] MEDS ORDERED: LIDOCAINE PF 2% 5 ML (XYLOCAINE) VIAL ONE (04:12)
[2018-08-03] MEDS ORDERED: ONDANSETRON 4 MG/2 ML (SDV) Z0FRAN ONE (04:12)
[2018-08-03] MEDS ORDERED: METHYLERGONOVINE 0.2 MG/ML (METHERGINE) AMP ONE (04:29)
[2018-08-03] MEDS ORDERED: OXYTOCIN (PITOCIN) 10 UNIT/ML VIAL ONE ×2 (04:47→05:03)
[2018-08-03] MEDS ORDERED: fentaNYL INJECTION 100 MCG/2 ML AMP IVP ONE (05:15)
[2018-08-03] MEDS ORDERED: morphine INJ 10 MG/ML 1ML (SYR OR VIAL) IVP ONE (05:15)
[2018-08-03] MEDS ORDERED: MEPERIDINE (DEMEROL) INJ 50 MG/ML IVP ONE (05:15)
[2018-08-03] MEDS ORDERED: ONDANSETRON 4 MG/2 ML (SDV) Z0FRAN IVP PRN (05:15)
[2018-08-03] MEDS ORDERED: METOCLOPRAMIDE INJ 10 MG/2 ML (REGLAN) IV ONE (05:30)
[2018-08-03] MEDS ORDERED: CATHETER FLUSH 10 ML SYR IV PRN (05:30)
[2018-08-03] MEDS ORDERED: TERBUTALINE INJ 1 MG/ML (BRETHINE) AMP SC ONE (05:30)
[2018-08-03] MEDS ORDERED: FAMOTIDINE 20MG/2ML IV (PEPCID) IV ONE (05:30)
[2018-08-03] MEDS ORDERED: CITRIC ACID/SOB CIT (BICITRA) 30 ML UDC PO ONE (05:30)
--- NOTE | 2018-08-03 05:35 | OPERATIVE REPORT ---
DATE OF SERVICE: PREOPERATIVE DIAGNOSES: 1. A 28-year-old G2, P1 at 40 weeks' gestation. 2. intolerance of labor. 3. Occiput posterior. POSTOPERATIVE DIAGNOSES: 1. A 28-year-old G2, P1 at 40 weeks' gestation. 2. intolerance of labor. 3. Occiput posterior. 4. Nuchal cord x1. PROCEDURE: Primary low transverse section. SURGEON: Daniel Beverly DO ANESTHESIA: Epidural, which was bolused. ESTIMATED BLOOD LOSS: 600 mL. URINE OUTPUT: 50 mL clear at the end of the procedure. FLUIDS: 1100 mL of lactate Ringer solution. FINDINGS: A live female weighing 7 pounds 7 ounces, Apgars of 8 and 9. Grossly normal-appearing uterus, bilateral fallopian tubes and ovaries. INDICATIONS FOR PROCEDURE: This patient was brought in earlier this morning for induction of labor at 2 to 3 cm. AROM was performed and Pitocin augmentation was implemented to achieve an adequate contraction pattern. She received an epidural on this afternoon for pain management and progressed to what the nurses had evaluated as complete and -1 station when I was contacted at 2:00 a.m. The nurse had concerned with a rapid descent due to a heart rate variable decelerations. Therefore, I proceeded to the hospital where I evaluated the patient and found the patient's cervix to be 9 cm dilated with an anterior lip and -1 station with each contraction, there was a severe drop in the heart rate down into the 40s or 50s with acute resolution. We did attempt pushing, but this only worsened the circumstances and there was a prolonged deceleration approximately 2 minutes long with a contraction that occurred at its miriam shortly after the contraction down to the 50s. Anesthesia and OR staff was contacted to present emergently due to distress. I turned off the Pitocin and gave terbutaline to the patient, which did resolve the deceleration and as the contractions stopped and the variable decelerations did stop; however, I did discuss with the patient the intolerance of the second stage of labor and pushing and how that she was still fairly remote from delivery and I recommended proceeding with at that point. Risk of the procedure was discussed with the patient in detail including risk of bleeding, infection, damaging surrounding structures including the , possible need for blood transfusion, possible hysterectomy and even . After everything was discussed with the patient in detail, consent was obtained in the preoperative area and the patient was taken to the operating room. OPERATIVE REPORT IN DETAIL: Once in the operating room, epidural analgesia was bolused and found to be adequate. She was placed in the supine position with the leftward tilt, prepped and draped in normal sterile fashion. Timeout was performed and anesthesia tested. A Pfannenstiel skin incision was then made with a knife and carried down the layer of fascia using Bovie cautery. Fascial incision extended laterally using Bovie cautery. The superior aspect of the fascial incision was then grasped with Sarah clamps, tented upward and dissected off the underlying rectus muscle. Inferior aspect of the fascial incision was then grasped with Sarah clamps, tented upward and dissected off the underlying rectus muscle. Rectus muscle was then dissected down the midline using Ferrer scissors, which exposed the peritoneum, which was entered bluntly and extended using blunt traction. Mikey ring retractor was then placed in the peritoneal incision, which offers excellent lateral sidewall retraction. Identified the lower uterine segment, which was found to be thinned out and make an incision through the vesicouterine peritoneum and bluntly dissected off of the lower uterine segment. I proceeded with myotomy until I am able to visualize the membranes, which I then enter bluntly and extended using blunt traction on the uterine incision. The infant was found in the vertex presentation, occiput posterior. With gentle fundal pressure, the 's head was elevated the incision where the nares and oropharynx were bulb suctioned. Nuchal cord was reduced x1. Anterior and posterior shoulders were delivered. was then brought to the operative field where the cord was doubly clamped and cut and infant was handed off to waiting nurses in attendance. Cord blood was collected. Three-vessel cord with intact placenta delivered spontaneously thereafter. IV Pitocin was initiated to facilitate uterine contraction. Uterine fundus became firmer with bimanual massage. The uterus was then exteriorized and cleared of all endometrial clots and debris. I then proceeded with closing the uterine incision using 0 Vicryl suture in a running locked fashion. A second layer of imbricating 0 Monocryl was placed. Excellent hemostasis was noted after doing this; however, there was a significant amount of uterine atony noted. A 0.2 mg of Methergine were given IM at that point and atony improved shortly thereafter with uterine massage. The uterus was then placed back within the pelvis. The pelvis was copiously irrigated using normal saline. Once again, there was no active bleeding noted from any of my dissection plane. I placed Interceed antiadhesive over my low transverse incision and proceeded with closing the peritoneum after removing the Mikey retractor. The peritoneum was reapproximated using 3-0 Vicryl suture in a running fashion. The rectus muscles reapproximated using 3-0 Vicryl suture in interrupted fashion. The fascia was reapproximated using 0 Vicryl suture in running fashion. The subcutaneous tissue was reapproximated using 3-0 plain in an interrupted subcutaneous stitch and the skin was reapproximated using 4-0 Monocryl in a running subcuticular. Dermabond was applied to incision and sterile dressing with adhesive white tape. The patient tolerated the procedure well and was taken to recovery area in stable condition. Lap and sponge count was correct at the end of the procedure. Instrument count was correct as well. Two grams of Ancef given preoperatively for infection prophylaxis. Job ID: [id number] DocumentID: [id number] Dictated Date: 08/03/2018 05:01:28 Bobbin Doffer Date: 08/03/2018 05:34:48 Dictated By: DANIEL BEVERLY DO
[2018-08-03] MEDS ORDERED: KETOROLAC 30 MG/ML VIAL ONE (05:48)
--- NOTE | 2018-08-03 05:50 | NUR ---
pt transferred to room 306 per bed accompanied by monty pacu, rn. Received report from Monty Garrido RN. Pt in bed smiling with infant skin to skin. Pitocin and LR running per gravity. IV converted to pump tubing. pitocin running at 125 ml/hr. scd's on. info papers given. ff u/1. Sprite and water given. Will monitor closely.
[2018-08-03] MEDS ORDERED: CATHETER FLUSH 10 ML SYR IV SCH (06:00)
[2018-08-03] MEDS: IBUPROFEN 600 MG (MOTRIN) TAB PO SCH ×3 (06:05→20:07)
--- NOTE | 2018-08-03 06:30 | NUR ---
Pt in room with family at bedside. denies needs.
--- NOTE | 2018-08-03 06:45 | NUR ---
New bag pit hung. Pt requesting for infant to go to nursery so she can rest. VSS. ff u/1. Minimal rubra. Pt requested to change pad later. Will pass on to next shift. Pt denies needs. lights dimmed. will monitor closely.
[2018-08-03] MEDS: DOCUSATE SODIUM 100 MG (COLACE) CAP PO SCH ×2 (08:40→20:07)
[2018-08-03] MEDS: HYDROcodone/APAP 5 MG/325 MG (LORTAB) TAB PO PRN (09:35)
--- NOTE | 2018-08-03 12:29 | Anesthesia-Regional Post-Op ---
Regional Patient Condition Mental Status: Alert, Oriented x3 Circulation: Same as Pre-Op Headache: Absent Sensation: Full Recovery Motor Block: Absent Post Op Complications Complications None Follow Up Care/Instructions Patient Instructions None needed. Anesthesia/Patient Condition Patient is doing well, no complaints, stable vital signs, no apparent adverse anesthesia problems. No complications reported per nursing. DIONTE RICE CRNA August 03, 2018 12:29
--- NOTE | 2018-08-03 17:50 | NUR ---
ASSISTED MOM WITH WITH A SHIELD. FED ON RIGHT BREAST X7 MINUTES AND WAS AT 7 MINUTES ON LEFT BREAST WHEN LEFT PT. FAMILY AT BEDSIDE.
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
--- NOTE | 2018-08-03 20:45 | NUR ---
Pt back to room at this time.
[2018-08-04 01:00] VITALS: BP 110/65
--- NOTE | 2018-08-04 01:00 | NUR ---
Pt alert sitting up in rocker with .
[2018-08-04] MEDS: HYDROcodone/APAP 5 MG/325 MG (LORTAB) TAB PO PRN (01:03)
[2018-08-04] MEDS: IBUPROFEN 600 MG (MOTRIN) TAB PO SCH ×4 (02:17→20:59)
--- NOTE | 2018-08-04 03:00 | NUR ---
Infant back to BF, but not interested, back to nsy while pt sleeps.
[2018-08-04 05:38] LABS: BASOPHILS % (AUTO) 0 % (0-10); EOSINOPHILS # (AUTO) 0.1 10^3/uL (0.0-0.3); EOSINOPHILS % (AUTO) 1 % (0-10); HEMATOCRIT 24 % (35-52); HEMOGLOBIN 7.4 G/DL (11.5-16.0); LYMPHOCYTES # (AUTO) 1.8 X 10^3 (1.0-4.0); LYMPHOCYTES % (AUTO) 15 % (12-44); MEAN CORPUSCULAR HEMOGLOBIN 23 PG (25-34); MEAN CORPUSCULAR HGB CONC 32 G/DL (32-36); MEAN CORPUSCULAR VOLUME 72 FL (80-99); MONOCYTES # (AUTO) 0.8 X 10^3 (0.0-1.0); MONOCYTES % (AUTO) 7 % (0-12); NEUTROPHILS % (AUTO) 77 % (42-75); PLATELET COUNT 213 10^3/uL (130-400); RED CELL DISTRIBUTION WIDTH 15.1 % (10.0-14.5); WHITE BLOOD COUNT 11.6 10^3/uL (4.3-11.0)
[2018-08-04 06:00] VITALS: BP 108/69
--- NOTE | 2018-08-04 06:05 | NUR ---
Infant taken back to room at this time.
[2018-08-04 08:20] VITALS: BP 112/67
[2018-08-04] MEDS: FERROUS SULF 325 MG (IRON) TAB PO SCH ×2 (08:25→20:59)
[2018-08-04] MEDS: DOCUSATE SODIUM 100 MG (COLACE) CAP PO SCH ×2 (08:25→20:59)
--- NOTE | 2018-08-04 09:51 | Postpartum Progress Note ---
Note Note Day # 1 Subjective: Patient is without complaints. Ambulating, voiding. Tolerating a regular diet without nausea or vomiting. Normal lochia. Pain is well controlled with oral pain medications. Objective: Physical Exam: General - Alert and oriented, no apparent distress Abdomen - Soft, appropriately tender to palpation, non-distended, fundus firm at umbilicus Extremities - no edema, negative Kesha's bilaterally Incision- c/d/i Assessment: POD 1 PLTCS Acute blood loss anemia Plan: Routine care. Encourage breast feeding. Encourage ambulation. Ferrous sulfate supplementation. Plan for discharge tomorrow Vitals - Labs Vital Signs - I&O Vital Signs Date Time Temp Pulse Resp B/P (MAP) Pulse Ox O2 Delivery O2 Flow Rate FiO2 08/04/18 06:00 98.1 84 18 108/69 (82) 99 Room Air 08/04/18 01:00 97.7 71 18 110/65 (80) Room Air 08/03/18 21:45 Room Air 08/03/18 20:05 98.2 90 18 107/68 (81) 98 Room Air 08/03/18 17:15 99.0 89 18 113/58 (76) 98 Room Air 08/03/18 14:00 98.0 77 18 116/74 (88) 100 Room Air I & O 08/04/18 07:00 Intake Total 2525 ml Output Total 680 ml Balance 1845 ml Labs Laboratory Tests 08/04/18 05:20: White Blood Count 11.6H, Red Blood Count 3.25L, Hemoglobin 7.4#L, Hematocrit 24L , Mean Corpuscular Volume 72L, Mean Corpuscular Hemoglobin 23L, Mean Corpuscular Hemoglobin Concent 32, Red Cell Distribution Width 15.1H, Platelet Count 213, Mean Platelet Volume 9.0, Neutrophils (%) (Auto) 77H, Lymphocytes (%) (Auto) 15, Monocytes (%) (Auto) 7, Eosinophils (%) (Auto) 1, Basophils (%) (Auto) 0, Neutrophils # (Auto) 9.0H, Lymphocytes # (Auto) 1.8, Monocytes # (Auto) 0.8, Eosinophils # (Auto) 0.1, Basophils # (Auto) 0.0 LIDIA BEVERLY DO August 04, 2018 09:51
[2018-08-04] MEDS ORDERED: DOCUSATE CALCIUM 240 MG (SURFAK) CAP PO SCH (18:45)
[2018-08-04] MEDS ORDERED: BISACODYL 5 MG (DULCOLAX) TABLET PO PRN (20:45)
[2018-08-04] MEDS ORDERED: BISACODYL 5 MG (DULCOLAX) TABLET PO ONE (20:49)
[2018-08-04 21:00] VITALS: BP 100/71
[2018-08-05 02:57] VITALS: BP 101/71
[2018-08-05] MEDS: IBUPROFEN 600 MG (MOTRIN) TAB PO SCH ×2 (02:57→09:59)
[2018-08-05] MEDS: HYDROcodone/APAP 5 MG/325 MG (LORTAB) TAB PO PRN (02:57)
--- NOTE | 2018-08-05 08:25 | NUR ---
Dr. Carter here to see patient. New orders received.
[2018-08-05] MEDS ORDERED: DOCUSATE CALCIUM 240 MG (SURFAK) CAP PO SCH (09:00)
--- NOTE | 2018-08-05 09:08 | Postpartum Progress Note ---
Note Note Day # 2 Subjective: Patient is without complaints. Ambulating, voiding. Tolerating a regular diet without nausea or vomiting. Normal lochia. Pain is well controlled with oral pain medications. Objective: Physical Exam: General - Alert and oriented, no apparent distress Abdomen - Soft, appropriately tender to palpation, non-distended, fundus firm at umbilicus Extremities - no edema, negative Kesha's bilaterally Incision- c/d/i Assessment: POD 2 PLTCS Acute blood loss anemia Plan: Routine care. Encourage breast feeding. Encourage ambulation. Ferrous sulfate supplementation. Plan for discharge today Vitals - Labs Vital Signs - I&O Vital Signs Date Time Temp Pulse Resp B/P (MAP) Pulse Ox O2 Delivery O2 Flow Rate FiO2 08/05/18 02:57 98.2 76 18 101/71 (81) 99 Room Air 08/04/18 21:00 98.0 84 18 100/71 (81) 99 Room Air I & O 08/05/18 07:00 Intake Total 500 ml Balance 500 ml LIDIA BEVERLY DO August 05, 2018 09:08
[2018-08-05] MEDS: FERROUS SULF 325 MG (IRON) TAB PO SCH (09:59)
[2018-08-05] MEDS: DOCUSATE SODIUM 100 MG (COLACE) CAP PO SCH (09:59)
[2018-08-05 10:03] VITALS: BP 118/65
--- NOTE | 2018-08-05 10:03 | NUR ---
AM shift assessment completed and vital signs obtained, see interventions. Plan of care reviewed with patient. Patient verbalizes understanding and questions answered. Scheduled Motrin, Iron, and Colace PO given. Patient denies any further needs or concerns at this time.
--- NOTE | 2018-08-05 12:22 | NUR ---
Discharge instructions and medications reviewed with patient both written and verbally. Patient verbalizes understanding and questions answered. Written prescriptions given to patient.
--- NOTE | 2018-08-05 13:55 | NUR ---
Patient discharged at this time and ambulated down to awaiting private vehicle accompanied by this RN. No signs or symptoms of distress noted.
== END 2018-08-05 13:55 | disposition home or self-care (01) | DRG 787 ==
LOC: LDRP 06:40 → WS 16:06 → LDRP 16:06 → WS 08-03 05:20
PROVIDERS: ADMIT Obstetrics & Gynecology; ATTEND Obstetrics & Gynecology
PROC: 10907ZC Drainage of Amniotic Fluid, Therapeutic from Products of Conception, Via Natural or Artificial Opening (ICD-10-PCS; 2018-08-02)
PROC: 10D00Z1 Extraction of Products of Conception, Low, Open Approach (ICD-10-PCS; principal; 2018-08-03 04:06)
DX: O76 Abnormality in fetal heart rate and rhythm complicating labor and delivery (principal); O64.0XX0 Obstructed labor due to incomplete rotation of fetal head, not applicable or unspecified; O69.81X0 Labor and delivery complicated by cord around neck, without compression, not applicable or unspecified; O90.81 Anemia of the puerperium; D62 Acute posthemorrhagic anemia; Z37.0 Single live birth; Z3A.39 39 weeks gestation of pregnancy
CPT/HCPCS: 36415; 85025; 86850; 86900; 86901; 88307; 94664

== ENCOUNTER → 2019-04-03 | Outpatient (CLI) | payer BC ==
[~2019-04-03] MED LIST changes: +ACHD5005 PO; +DOCU100C37 PO; +IBUP-844 PO
--- NOTE | 2019-04-03 13:40 | Diagnostic Imaging Report ---
PROCEDURE: US Thyroid. TECHNIQUE: Multiple real-time grayscale images were obtained of the thyroid in various projections. INDICATION: Hypothyroidism. FINDINGS: Right lobe of the thyroid measures 5.3 x 1.9 x 2.0 cm and the left lobe measures 4.7 x 1.6 x 2.0 cm. Isthmus is 5 mm in thickness. Both lobes show marked parenchymal heterogeneity. No discrete thyroid mass is identified. IMPRESSION: Thyroid heterogeneity. No discrete mass is detected. Dictated by: Dictated on workstation # [id number]
== END ==
LOC: RAD 13:06
PROVIDERS: ATTEND Nurse Practitioner Family
DX: E03.8 Other specified hypothyroidism (principal)
CPT/HCPCS: 76536

== ENCOUNTER → 2022-03-03 | Outpatient (CLI) | payer BC ==
--- NOTE | 2022-03-03 14:55 | Diagnostic Imaging Report ---
INDICATION: OB ultrasound. TECHNIQUE: Multiple Real-time grayscale images were obtained over the gravid uterus. COMPARISON: None. FINDINGS: Single live intrauterine fetus. Transverse lie head to maternal left. Amniotic fluid index is normal at 10 cm. Placenta is posterior and not low. anatomical survey was normal. Structures visualized included the kidneys, bladder, stomach, ventricles, brain, four-chamber heart, three-vessel cord, spine, and cord insertion. The maternal adnexa are normal. Biometrical measurements are as follows: Biparietal 4.38 cm, age 19 weeks 2 days. Head circumference 17.45 cm, age 20 weeks 0 days. Abdominal circumference 15.32 cm, age 20 weeks 4 days. Femur length 3.03 cm, age 19 weeks 3 days. Sonographic estimate age: 19 weeks 6 days. Sonographic estimated date of delivery: 07/22/2022. Estimated Weight: 324 gm (+/- 48 gm). LMP percentile: 60%. heart rate: 149 beats per minute. number: 1 of 1. IMPRESSION: Single live intrauterine fetus. Transverse presentation. No abnormality is demonstrated. Current measurements are average for a 19 week 6 day gestation with an estimated date of delivery of 07/22/2022. Dictated by: Dictated on workstation # [id number]
== END ==
LOC: RAD 11:08
PROVIDERS: ATTEND Nurse Practitioner Women's Health
DX: Z34.02 Encounter for supervision of normal first pregnancy, second trimester (principal); Z3A.19 19 weeks gestation of pregnancy
CPT/HCPCS: 76805

== ENCOUNTER 2022-06-06 18:05 | Emergency (ER) | payer BC ==
[~2022-06-06] VITALS: Ht 160 cm; Wt 92.0 kg
[2022-06-06] MEDS ORDERED: LACTATED RINGERS 1,000 ML IV STA (18:25)
--- NOTE | 2022-06-06 18:29 | ED GI ---
General Chief Complaint: OB > 20 WEEKS Stated Complaint: ABD PAIN Nursing Triage Note: pt is 33weeks , starting having intermittent and sporadically located abdominal pain around 1330 after lunch. denies n/v, denies vaginal bleeding. Source of Information: Patient Exam Limitations: No Limitations History of Present Illness Date Seen by Provider: Jun 06, 2022 Time Seen by Provider: 18:07 Initial Comments 32yoF that is at 33 WGA coming in due to lower abdominal pain/cramping. Pain started around 1:30 PM, has never really had discomfort like this before. She has had 1 vaginal , and the other was a . This will be a planned . This has been healthy with no complications. Denies any vaginal bleeding, loss of fluid like her water has broken, contractions, and she does feel baby move. Otherwise denying any fever, nausea, vomiting, diarrhea, focal weakness or numbness, dysuria, or any other concerns. Took Tylenol this morning for backache its been going on for over a month. Allergies and Home Medications Allergies Coded Allergies: No Known Drug Allergies (Verified , 10/22/08) Patient Home Medication List Home Medication List Reviewed: Yes Docusate Sodium (Docusate Sodium) 100 Mg Capsule, 100 MG PO BID PRN for CONSTIPATION-1ST LINE Prescribed by: LIDIA BEVERLY on 08/03/18358 Hydrocodone Bit/Acetaminophen (Lortab 5 Mg Tablet) 1 Tab Tab, 2 TAB PO Q6HR PRN for PAIN-MODERATE Prescribed by: LIDIA BEVERLY on 08/03/18358 Ibuprofen (Ibu) 600 Mg Tablet, 600 MG PO Q6HR Prescribed by: LIDIA BEVERLY on 08/03/18358 Levothyroxine Sodium (Synthroid) 75 Mcg Tablet, 75 MCG PO DAILY, (Reported) Entered as Reported by: EDDIE CHAU on 07/27/18 1000 [id number]/Iron Fumarate/FA/Dss ( 19 Tablet) 1 Each Tablet, 1 EACH PO DAILY, (Reported) Entered as Reported by: EDDIE CHAU on 07/27/18 1000 Review of Systems Review of Systems Constitutional: No fever EENTM: No Symptoms Reported Respiratory: No Symptoms Reported Cardiovascular: No Symptoms Reported Gastrointestinal: See HPI Genitourinary: No Symptoms Reported Musculoskeletal: no symptoms reported Skin: no symptoms reported Psychiatric/Neurological: No Symptoms Reported Endocrine: No Symptoms Reported Hematologic/Lymphatic: No Symptoms Reported All Other Systems Reviewed Negative Unless Noted: Yes Past Fgagpjj-Cqrjtu-Gcdkrs Hx Patient Social History Substance use?: No Seasonal Allergies Seasonal Allergies: Yes Past Medical History Surgeries: Yes Section Respiratory: No Cardiac: No Irregular Heartbeat Neurological: No Reproductive Disorders: No Gastrointestinal: No Musculoskeletal: No Endocrine: Yes (GESTATIONAL DIABETES) HEENT: No Cancer: No Psychosocial: No Integumentary: No Blood Disorders: No Adverse Reaction/Blood Tranf: No Family Medical History FH: lung cancer gma gpa Physical Exam Vital Signs Vital Signs - First Documented 06/06/22 18:21 Temp 36.8 Pulse 90 Resp 18 B/P (MAP) 117/75 (89) Pulse Ox 99 O2 Delivery Room Air Capillary Refill : Less Than 3 Seconds Height/Weight/BMI Height: 5'3.00" Weight: 193lbs. 4.0oz. 87.908311bs; 35.00 BMI Method: General Appearance: WD/WN, no apparent distress HEENT: PERRL/EOMI, normal ENT inspection, pharynx normal Neck: non-tender, full range of motion, supple, normal inspection Respiratory: chest non-tender, lungs clear, normal breath sounds, no respiratory distress, no accessory muscle use Cardiovascular: regular rate, rhythm, no edema, no murmur Gastrointestinal: normal bowel sounds, soft; No distended, No guarding, No rebo und; tenderness (Mild suprapubic discomfort), other (Gravid) Extremities: normal range of motion, non-tender, normal inspection, no pedal edema, no calf tenderness, normal capillary refill Back: normal inspection, no CVA tenderness Neurologic/Psychiatric: no motor/sensory deficits, alert, normal mood/affect Skin: normal color, warm/dry Progress/Results/Core Measures Results/Orders Lab Results Laboratory Tests Test 06/06/22 18:36 06/06/22 18:55 Range/Units Urine Color YELLOW Urine Clarity CLEAR Urine pH 6.0 5-9 Urine Specific [place] 1.020 1.016-1.022 Urine Protein NEGATIVE NEGATIVE Urine Glucose (UA) NEGATIVE NEGATIVE Urine Ketones TRACE H NEGATIVE Urine Nitrite NEGATIVE NEGATIVE Urine Bilirubin NEGATIVE NEGATIVE Urine Urobilinogen 0.2 < = 1.0 MG/DL Urine Leukocyte Esterase NEGATIVE NEGATIVE Urine RBC (Auto) TRACE-I H NEGATIVE Urine RBC RARE /HPF Urine WBC 2-5 /HPF Urine Squamous Epithelial Cells 5-10 /HPF Urine Crystals NONE /LPF Urine Bacteria MODERATE H /HPF Urine Casts NONE /LPF Urine Mucus MODERATE H /LPF Urine Culture Indicated YES White Blood Count 12.1 H 4.3-11.0 10^3/uL Red Blood Count 3.98 3.80-5.11 10^6/uL Hemoglobin 9.5 L 11.5-16.0 g/dL Hematocrit 30 L 35-52 % Mean Corpuscular Volume 74 L 80-99 fL Mean Corpuscular Hemoglobin 24 L 25-34 pg Mean Corpuscular Hemoglobin Concent 32 32-36 g/dL Red Cell Distribution Width 14.2 10.0-14.5 % Platelet Count 230 130-400 10^3/uL Mean Platelet Volume 9.7 9.0-12.2 fL Immature Granulocyte % (Auto) 0 % Neutrophils (%) (Auto) 84 H 42-75 % Lymphocytes (%) (Auto) 10 L 12-44 % Monocytes (%) (Auto) 5 0-12 % Eosinophils (%) (Auto) 0 0-10 % Basophils (%) (Auto) 0 0-10 % Neutrophils # (Auto) 10.1 H 1.8-7.8 10^3/uL Lymphocytes # (Auto) 1.3 1.0-4.0 10^3/uL Monocytes # (Auto) 0.6 0.0-1.0 10^3/uL Eosinophils # (Auto) 0.1 0.0-0.3 10^3/uL Basophils # (Auto) 0.0 0.0-0.1 10^3/uL Immature Granulocyte # (Auto) 0.0 0.0-0.1 10^3/uL Sodium Level 134 L 135-145 MMOL/L Potassium Level 3.3 L 3.6-5.0 MMOL/L Chloride Level 104 98-107 MMOL/L Carbon Dioxide Level 21 21-32 MMOL/L Anion Gap 9 5-14 MMOL/L Blood Urea Nitrogen 11 7-18 MG/DL Creatinine 0.61 0.60-1.30 MG/DL Estimat Glomerular Filtration Rate 123 BUN/Creatinine Ratio 18 Glucose Level 95 70-105 MG/DL Calcium Level 8.8 8.5-10.1 MG/DL Corrected Calcium 9.4 8.5-10.1 MG/DL Magnesium Level 1.2 L 1.6-2.4 MG/DL Total Bilirubin 0.3 0.1-1.0 MG/DL Aspartate Amino Transf (AST/SGOT) 12 5-34 U/L Alanine Aminotransferase (ALT/SGPT) 8 0-55 U/L Alkaline Phosphatase 81 40-136 U/L C-Reactive Protein High Sensitivity 0.73 H 0.00-0.50 MG/DL Total Protein 6.6 6.4-8.2 GM/DL Albumin 3.2 3.2-4.5 GM/DL Lipase 9 8-78 U/L My Orders Orders - DIDI GONZALEZ MD Cbc With Automated Diff (06/06/22 18:25) Comprehensive Metabolic Panel (06/06/22 18:25) Hs C Reactive Protein (06/06/22 18:25) Lipase (06/06/22 18:25) Magnesium (06/06/22 18:25) Ua Culture If Indicated (06/06/22 18:25) Erythrocyte Sedimentation Rate (06/06/22 18:25) Ed Iv/Invasive Line Start (06/06/22 18:25) Lactated Ringers (Lr 1000 Ml Iv Solution (06/06/22 18:25) Acetaminophen Tablet (Tylenol Tablet) (06/06/22 18:30) Famotidine Tablet (Pepcid Tablet) (06/06/22 18:30) Urine Culture (06/06/22 18:36) Nitrofurantoin Capsule,Macro (Macrobid C (06/06/22 19:00) Magnesium 1 Gm/100 Ml Ivpb (Magnesium Thakkar (06/06/22 19:30) Medications Given in ED Current Medications Medications Dose Ordered Sig/Betty Route Start Time Stop Time Status Last Admin Dose Admin Acetaminophen 1,000 mg ONCE ONCE PO 06/06/22 18:30 06/06/22 18:31 DC 06/06/22 18:57 1,000 MG Famotidine 20 mg ONCE ONCE PO 06/06/22 18:30 06/06/22 18:31 DC 06/06/22 18:57 20 MG Nitrofurantoin Macrocrystals 100 mg ONCE ONCE PO 06/06/22 19:00 06/06/22 19:01 DC 06/06/22 18:59 100 MG Vital Signs/I&O 06/06/22 18:21 Temp 36.8 Pulse 90 Resp 18 B/P (MAP) 117/75 (89) Pulse Ox 99 O2 Delivery Room Air Blood Pressure Mean: 89 Progress Progress Note : Progress Note 32yoF with above history coming in due to abdominal cramping/pain. ABCs intact and VSS on presentation. Physical exam with a gravid abdomen with some mild suprapubic discomfort. No signs of peritonitis on exam. I personally did a [id number] ultrasound showing a heart rate around 150, and movement. An IV was placed and basic labs were obtained including LFTs. Urinalysis with bacteria, and given she is with suprapubic discomfort, we will treat her with Macrobid. Also given IV fluids, Tylenol, Pepcid to try to calm down her discomfort. On reassessment, symptoms significantly improved. Magnesium was 1.2 which is low, patient was given IV magnesium. Inflammatory markers including high- sensitivity CRP just slightly elevated which would be expected with , not elevated enough that I be concerned for significant appendicitis or something along those lines. Repeat abdominal exam reassuring. Patient will be discharged from the ER, we will have OB come and evaluate the patient to rule out labor. I believe she is otherwise stable for discharge with outpatient follow-up. She was sent home with strict return precautions. She is to follow-up with OB. Departure Impression Primary Impression: Suprapubic discomfort Additional Impressions: Bacteriuria during Qualified Codes: Z3A.33 - 33 weeks gestation of Hypomagnesemia Disposition: HOME, SELF-CARE Condition: Stable Departure-Patient Inst. Decision time for Depature: 20:00 Referrals: LASHA DERAS MD (PCP/Family) Primary Care Physician Patient Instructions: Asymptomatic Bacteriuria Add. Discharge Instructions: You do have bacteria in your urine, we do treat this in . You will be on an antibiotic for the next 5 days twice a day. If you have any contractions or worsening symptoms, please come back to the ER or call your OB. Be sure to drink plenty of fluids and take Tylenol as needed. Work/School Note: Family Work Note, Patient Received Medical Care In the Emergency Department On: Jun 06, 2022 Patient Will Be Able to Return to Work/School On: Jun 07, 2022 Work Release Form Date Seen in the Emergency Department: Jun 06, 2022 Return to Work: Jun 07, 2022 Restrictions: No Restrictions DIDI GONZALEZ MD Jun 06, 2022 18:29
[2022-06-06] MEDS ORDERED: ACETAMINOPHEN 500 MG TAB (TYLENOL) PO ONE (18:30)
[2022-06-06] MEDS ORDERED: FAMOTIDINE 20 MG (PEPCID) TABLET PO ONE (18:30)
[2022-06-06 18:44] LABS: BILIRUBIN,URINE NEGATIVE (NEGATIVE); CLARITY,URINE CLEAR; COLOR,URINE YELLOW; GLUCOSE, URINE (UA) NEGATIVE (NEGATIVE); KETONES,URINE TRACE (NEGATIVE); LEUKOCYTE ESTERASE ,URINE NEGATIVE (NEGATIVE); NITRITE,URINE NEGATIVE (NEGATIVE); PROTEIN,URINE NEGATIVE (NEGATIVE)
[2022-06-06 18:52] LABS: BACTERIA,URINE MODERATE /HPF; RBC,URINE RARE /HPF
[2022-06-06] MEDS ORDERED: NITROFURANTOIN 100 MG (MACROBID) CAPSULE PO ONE (19:00)
[2022-06-06 19:10] LABS: BASOPHILS % (AUTO) 0 % (0-10); EOSINOPHILS # (AUTO) 0.1 10^3/uL (0.0-0.3); EOSINOPHILS % (AUTO) 0 % (0-10); HEMATOCRIT 30 % (35-52); HEMOGLOBIN 9.5 g/dL (11.5-16.0); LYMPHOCYTES # (AUTO) 1.3 10^3/uL (1.0-4.0); LYMPHOCYTES % (AUTO) 10 % (12-44); MEAN CORPUSCULAR HEMOGLOBIN 24 pg (25-34); MEAN CORPUSCULAR HGB CONC 32 g/dL (32-36); MEAN CORPUSCULAR VOLUME 74 fL (80-99); MEAN PLATELET VOLUME 9.7 fL (9.0-12.2); MONOCYTES # (AUTO) 0.6 10^3/uL (0.0-1.0); MONOCYTES % (AUTO) 5 % (0-12); NEUTROPHILS # (AUTO) 10.1 10^3/uL (1.8-7.8); NEUTROPHILS % (AUTO) 84 % (42-75); PLATELET COUNT 230 10^3/uL (130-400); WHITE BLOOD COUNT 12.1 10^3/uL (4.3-11.0)
[2022-06-06 19:16] LABS: ALBUMIN 3.2 GM/DL (3.2-4.5)
[2022-06-06 19:17] LABS: POTASSIUM 3.3 MMOL/L (3.6-5.0)
[2022-06-06 19:18] LABS: CALCIUM 8.8 MG/DL (8.5-10.1)
[2022-06-06 19:19] LABS: TOTAL PROTEIN 6.6 GM/DL (6.4-8.2)
[2022-06-06 19:21] LABS: BILIRUBIN,TOTAL 0.3 MG/DL (0.1-1.0)
[2022-06-06 19:23] LABS: CREATININE SERUM 0.61 MG/DL (0.60-1.30)
[2022-06-06 19:26] LABS: MAGNESIUM 1.2 MG/DL (1.6-2.4)
[2022-06-06] MEDS ORDERED: MAGNESIUM 1 GM/100 ML IVPB 100 ML IV STA (19:30)
[2022-06-06 19:38] LABS: ERYTHROCYTE SEDIMENTATION RATE 33 MM/HR (0-20)
[2022-06-06] MEDS ORDERED: NITR-65 PO ×2 (19:39)
[2022-06-06 19:56] VITALS: BP 98/54
== END 2022-06-06 20:07 | disposition home or self-care (01) ==
LOC: EDUNIT# 18:05 → ER 18:06
DX: O26.893 Other specified pregnancy related conditions, third trimester (principal); O99.283 Endocrine, nutritional and metabolic diseases complicating pregnancy, third trimester; R10.30 Lower abdominal pain, unspecified; R82.71 Bacteriuria; E83.42 Hypomagnesemia; R79.82 Elevated C-reactive protein (CRP); Z3A.33 33 weeks gestation of pregnancy
CPT/HCPCS: 36415; 80053; 81000; 83690; 83735; 85025; 85652; 86141; 87088

== ENCOUNTER 2022-06-06 20:15 | Outpatient (CLI) | payer BC ==
[2022-06-06 20:11] VITALS: BP 118/76
[~2022-06-06 20:15] MED LIST changes: +NITR-65 PO
[2022-06-06 21:18] VITALS: BP 118/76
--- NOTE | 2022-06-06 21:18 | OB Triage Report ---
Standard Progress Note Progress Notes/Assess & Plan Date Seen by a Provider: Jun 06, 2022 Time Seen by a Provider: 21:15 Expected Date of Delivery: July 23, 2022 Gestational Age in Weeks: 33 Gestational Age in Days: 2 LMP/SAMEER Comment: As above Progress/Assessment & Plan Patient sent to L&D for NST from ED. Seen in ED for abdominal pain and cleared by ED, here for NST only. Patient with Category I NST Reactive, with single contraction in 1 hour. Home with routine precautions. Follow up routine OB, sooner prn. VSS Final Diagnosis 33 weeks Not in labor Abdominal pain ASHLEY DICKINSON DO Jun 06, 2022 21:18
== END 2022-06-06 21:18 | disposition home or self-care (01) ==
LOC: LDRP 20:15 → WSo 20:15
PROVIDERS: ATTEND Obstetrics & Gynecology
DX: O26.893 Other specified pregnancy related conditions, third trimester (principal); R10.9 Unspecified abdominal pain; Z3A.33 33 weeks gestation of pregnancy
CPT/HCPCS: 99213

== ENCOUNTER 2022-07-10 05:29 | Outpatient (CLI) | payer BC ==
[~2022-07-10] VITALS: Ht 160 cm; Wt 94.5 kg
== END 2022-07-10 10:00 | disposition home or self-care (01) ==
LOC: PREOP 05:29
PROVIDERS: ATTEND Obstetrics & Gynecology
DX: Z01.818 Encounter for other preprocedural examination (principal)

== ENCOUNTER 2022-07-16 07:13 | Inpatient (IN) | payer BC ==
[2022-07-16] VITALS (8 sets, daily range): BP systolic 106–123; BP diastolic 71–81
[~2022-07-16] VITALS: Ht 162.6 cm; Wt 94.5 kg
[2022-07-16] MEDS ORDERED: ceFAZolin INJECTION 2,000 MG in NS (IVPB) 50 ML IV ONE (08:00)
[2022-07-16 09:03] LABS: BASOPHILS % (AUTO) 0 % (0-10); EOSINOPHILS # (AUTO) 0.1 10^3/uL (0.0-0.3); EOSINOPHILS % (AUTO) 1 % (0-10); HEMATOCRIT 32 % (35-52); HEMOGLOBIN 10.2 g/dL (11.5-16.0); LYMPHOCYTES # (AUTO) 1.6 10^3/uL (1.0-4.0); LYMPHOCYTES % (AUTO) 21 % (12-44); MEAN CORPUSCULAR HEMOGLOBIN 23 pg (25-34); MEAN CORPUSCULAR HGB CONC 32 g/dL (32-36); MEAN CORPUSCULAR VOLUME 73 fL (80-99); MEAN PLATELET VOLUME 9.8 fL (9.0-12.2); MONOCYTES # (AUTO) 0.4 10^3/uL (0.0-1.0); MONOCYTES % (AUTO) 5 % (0-12); NEUTROPHILS # (AUTO) 5.2 10^3/uL (1.8-7.8); NEUTROPHILS % (AUTO) 72 % (42-75); PLATELET COUNT 222 10^3/uL (130-400); WHITE BLOOD COUNT 7.3 10^3/uL (4.3-11.0)
[2022-07-16] MEDS ORDERED: CITRIC ACID/SOB CIT (BICITRA) 30 ML UDC PO ONE (09:15)
[2022-07-16] MEDS ORDERED: LACTATED RINGERS 1,000 ML IV PRN ×2 (09:15)
[2022-07-16] MEDS ORDERED: METOCLOPRAMIDE INJ 10 MG/2 ML (REGLAN) IV ONE (09:15)
[2022-07-16] MEDS ORDERED: FAMOTIDINE 20MG/2ML IV (PEPCID) IV ONE (09:15)
[2022-07-16 09:17] LABS: ALBUMIN 3.3 GM/DL (3.2-4.5)
[2022-07-16 09:18] LABS: CALCIUM 8.5 MG/DL (8.5-10.1)
[2022-07-16 09:19] LABS: TOTAL PROTEIN 6.4 GM/DL (6.4-8.2)
[2022-07-16 09:21] LABS: BILIRUBIN,TOTAL 0.3 MG/DL (0.1-1.0)
[2022-07-16 09:23] LABS: CREATININE SERUM 0.59 MG/DL (0.60-1.30)
--- NOTE | 2022-07-16 09:48 | History & Physical-OB ---
NELA LLOYD 07/16/22 0948: OB - Chief Complaint & HPI Date/Time Date of Admission: Date of Admission: July 16, 2022 at 07:13 Date seen by a Provider: July 16, 2022 Time Seen by a Provider: 10:00 Chief Complaint/History OB-Reason for Admission/Chief: Section Hx : 3 Hx Para: 2 Expected Date of Delivery: July 23, 2022 Gestational Age in Weeks: 39 Gestational Age in Days: 0 Indication for : desires repeat Admission Nurse Assessment Rev: Yes Allergies and Home Medications Allergies Coded Allergies: No Known Drug Allergies (Verified , 07/10/22) Patient Home Medication List Home Medication List Reviewed: Yes Docusate Sodium (Docusate Sodium) 100 Mg Capsule, 100 MG PO BID PRN for CONSTIPATION-1ST LINE Prescribed by: DANIEL CARTER on 07/16/22 1038 Hydrocodone/Acetaminophen (Hydrocodone-Acetamin 5-325 mg) 5 Mg-325 Mg Tablet, 1- 2 EA PO Q6HR PRN for PAIN-MODERATE (5-7) Prescribed by: DANIEL CARTER on 07/16/22 1038 Ibuprofen (Ibu) 600 Mg Tablet, 600 MG PO Q6H Prescribed by: DANIEL CARTER on 07/16/22 1038 Levothyroxine Sodium (Synthroid) 75 Mcg Tablet, 75 MCG PO DAILY, (Reported) Entered as Reported by: EDDIE CHAU on 07/27/18 1000 Sjp944/Iron Fumarate/FA/Dss ( 19 Tablet) 1 Each Tablet, 1 EACH PO DAILY, (Reported) Entered as Reported by: EDDIE CHAU on 07/27/18 1000 Discontinued Medications Nitrofurantoin Monohyd/M-Cryst (Macrobid 100 mg Capsule) 100 Mg Capsule, 1 TAB PO BID Discontinued Reason: No Longer Taking Prescribed by: DIDI GONZALEZ on 06/06/22 193 OB - History Hx of Present Ultrasounds: Normal mid trimester US Obstetrical Complications: None Medical Complications: Other (Hypothyroidism) Information Induced Hypertension: No Maternal Gestational Diabetes: No Hemorrhage: No Obstetrical History Hx : 3 Hx Para: 2 Hx # Term Pregnancies: 2 Number of Living Children: 2 Hx Termination: No Hx Multiple Gestation: No Hx Ectopic : No Hx Stillbirth: No Hx Complication: No Hx Induced Hypertens: No Hx Maternal Gestational Diabet: No Hx Hemorrhage: No Delivery History Hx Dystocia: No Hx Forceps Assisted Delivery: No Hx Vacuum Extraction Assisted: No Hx Placenta Abnormality: No Hx Distress: Yes Hx Large For Gestational Age I: No Hx Small for Gestational Age I: No Hx Section: Yes Hx Vaginal Delivery Post C-Sec: No Hx Blood Disorders: No Adverse Rxn to Tranfusion: No Patient Past Medical History n/a Social History/Family History Alcohol Use: Denies Use Recreational Drug Use: No Smoking Cessation: Never smoker 2nd Hand Smoke Exposure: No Immunizations Influenza Vaccine Up-to-Date: Yes; Up-to-Date First/Initial COVID19 Vaccine: 01/02 Second COVID19 Vaccination: 02/02 Hepatitis A: No Hepatitis B: No Tetanus Booster (TDap): Less than 5yrs Rubella: immune RPR/VDRL: Negative GBS Status: Negative HBsAG: Negative OB - Admission Exam Physical Exam Heart: Rhythm Normal Lungs: Clear Abdomen: Gravid Extremities: Edema Reflexes: Normal Membranes: Intact Labs Laboratory Tests Test 07/16/22 08:48 Range/Units White Blood Count 7.3 4.3-11.0 10^3/uL Red Blood Count 4.44 3.80-5.11 10^6/uL Hemoglobin 10.2 L 11.5-16.0 g/dL Hematocrit 32 L 35-52 % Mean Corpuscular Volume 73 L 80-99 fL Mean Corpuscular Hemoglobin 23 L 25-34 pg Mean Corpuscular Hemoglobin Concent 32 32-36 g/dL Red Cell Distribution Width 15.1 H 10.0-14.5 % Platelet Count 222 130-400 10^3/uL Mean Platelet Volume 9.8 9.0-12.2 fL Immature Granulocyte % (Auto) 1 % Neutrophils (%) (Auto) 72 42-75 % Lymphocytes (%) (Auto) 21 12-44 % Monocytes (%) (Auto) 5 0-12 % Eosinophils (%) (Auto) 1 0-10 % Basophils (%) (Auto) 0 0-10 % Neutrophils # (Auto) 5.2 1.8-7.8 10^3/uL Lymphocytes # (Auto) 1.6 1.0-4.0 10^3/uL Monocytes # (Auto) 0.4 0.0-1.0 10^3/uL Eosinophils # (Auto) 0.1 0.0-0.3 10^3/uL Basophils # (Auto) 0.0 0.0-0.1 10^3/uL Immature Granulocyte # (Auto) 0.0 0.0-0.1 10^3/uL Sodium Level 135 135-145 MMOL/L Potassium Level 4.0 3.6-5.0 MMOL/L Chloride Level 105 98-107 MMOL/L Carbon Dioxide Level 20 L 21-32 MMOL/L Anion Gap 10 5-14 MMOL/L Blood Urea Nitrogen 10 7-18 MG/DL Creatinine 0.59 L 0.60-1.30 MG/DL Estimat Glomerular Filtration Rate 123 BUN/Creatinine Ratio 17 Glucose Level 74 70-105 MG/DL Calcium Level 8.5 8.5-10.1 MG/DL Corrected Calcium 9.1 8.5-10.1 MG/DL Total Bilirubin 0.3 0.1-1.0 MG/DL Aspartate Amino Transf (AST/SGOT) 15 5-34 U/L Alanine Aminotransferase (ALT/SGPT) 7 0-55 U/L Alkaline Phosphatase 120 40-136 U/L Total Protein 6.4 6.4-8.2 GM/DL Albumin 3.3 3.2-4.5 GM/DL OB - Assessment/Plan/Diagnosis Assessment Assessment: section Admission Dx Repeat section Admission Status: Inpatient Order (span 2 midnights) Reason for Inpatient Admission: Repeat section Plan Plan: Section DANIEL CARTER DO 07/16/22 1246: Allergies and Home Medications Allergies Coded Allergies: No Known Drug Allergies (Verified , 07/10/22) Patient Home Medication List Docusate Sodium (Docusate Sodium) 100 Mg Capsule, 100 MG PO BID PRN for CONST IPATION-1ST LINE Prescribed by: DANIEL CARTER on 07/16/22 1038 Hydrocodone/Acetaminophen (Hydrocodone-Acetamin 5-325 mg) 5 Mg-325 Mg Tablet, 1- 2 EA PO Q6HR PRN for PAIN-MODERATE (5-7) Prescribed by: DANIEL CARTER on 07/16/22 1038 Ibuprofen (Ibu) 600 Mg Tablet, 600 MG PO Q6H Prescribed by: DANIEL CARTER on 07/16/22 1038 Levothyroxine Sodium (Synthroid) 75 Mcg Tablet, 75 MCG PO DAILY, (Reported) Entered as Reported by: EDDIE CHAU on 07/27/18 1000 Iwf961/Iron Fumarate/FA/Dss ( 19 Tablet) 1 Each Tablet, 1 EACH PO DAILY, (Reported) Entered as Reported by: EDDIE CHAU on 07/27/18 1000 Discontinued Medications Nitrofurantoin Monohyd/M-Cryst (Macrobid 100 mg Capsule) 100 Mg Capsule, 1 TAB PO BID Discontinued Reason: No Longer Taking Prescribed by: DIDI GONZALEZ on 06/06/221938 OB - Assessment/Plan/Diagnosis Plan Other Plan Verification and Attestation of Medical Student E/M Service A medical student performed and documented this service in my presence. I reviewed and verified all information documented by the medical student and made modifications to such information, when appropriate. I personally performed the physical exam and medical decision making. Daniel Carter, July 16, 2022,12:46 NELA LLOYD July 16, 2022 09:48 DANIEL CARTER DO July 16, 2022 12:46
[2022-07-16] MEDS ORDERED: NALOXONE 0.4 MG/ML 1 ML (NARCAN) VIAL IV PRN ×3 (10:15→12:15)
[2022-07-16] MEDS ORDERED: TETANUS,DIPTH,PERTUSS P/F (BOOSTRIX) 0.5 ML VIAL IM SCH (10:15)
[2022-07-16] MEDS ORDERED: ONDANSETRON 4 MG/2 ML (SDV) Z0FRAN IVP PRN (10:15)
[2022-07-16] MEDS ORDERED: HYDROcodone/APAP 5 MG/325 MG (LORTAB) TAB PO PRN (10:15)
[2022-07-16] MEDS ORDERED: MEASLES,MUMPS,RUBELLA 1 EA INJ SC SCH (10:15)
[2022-07-16] MEDS ORDERED: fentaNYL INJ 100 MCG/2 ML AMP ONE (10:18)
--- NOTE | 2022-07-16 10:37 | Discharge Inst-Women's Service ---
Discharge Inst-Women's Serv Depart Medication/Instructions New, Converted or Re-Newed RX: Transmitted to Pharmacy Final Diagnosis POD 2 RLTCS Problems Reviewed?: Yes Consults/Follow Up Additional Follow Up: Yes Orders/Referrals Dr. Carter in 7-10 days and in 6 weeks Activity Activity: Activity as Tolerated Driving Instructions: No Driving for 1 Week NO SMOKING: NO SMOKING Nothing Inside Vagina: No Douching, No [place], No Tampons Diet Discharge Diet: No Restrictions Symptoms to Report to : Bleeding Excessive, Pain Increased, Fever Over 101 Degrees F, Vaginal Bleeding Increase, Questions/Concerns For Any Problems or Questions: Contact Your Physician Skin/Wound Care Infection Signs and Symptoms: Increased Redness, Foul Odor of Wound, Increased Drainage, Skin Itchy or Has a Rash, Increased Swelling, Temperature Above 101 F Operative Area Clean and Dry: Keep Incision Clean/Dry Stitches/[place]/Dermabond: Dermabond, Care of Stitches Bathing Instructions: LIDIA Brock DO July 16, 2022 10:37
[2022-07-16] MEDS ORDERED: DOCU100C37 PO (10:38)
[2022-07-16] MEDS ORDERED: ACHD5005 PO (10:38)
[2022-07-16] MEDS ORDERED: IBUP-844 PO (10:38)
[2022-07-16] MEDS ORDERED: ONDANSETRON 4 MG/2 ML (SDV) Z0FRAN ONE (10:40)
[2022-07-16] MEDS ORDERED: OXYTOCIN PRE-MIX DRIP 1,000 ML IV ONE (10:40)
[2022-07-16] MEDS ORDERED: KETOROLAC 30 MG/ML VIAL ONE (10:51)
[2022-07-16] MEDS: OXYTOCIN PRE-MIX DRIP 500 ML IV SCH ×2 (11:00→15:13)
[2022-07-16] MEDS: KETOROLAC 30 MG/ML VIAL IV SCH ×3 (11:15→23:50)
[2022-07-16] MEDS ORDERED: BUPIVACAINE 0.25% 10 ML (SENSORCAINE) VIAL ONE (11:22)
[2022-07-16] MEDS ORDERED: ONDANSETRON 4 MG/2 ML (SDV) Z0FRAN IV PRN (12:15)
[2022-07-16] MEDS ORDERED: METOCLOPRAMIDE INJ 10 MG/2 ML (REGLAN) IV PRN (12:15)
[2022-07-16] MEDS ORDERED: diphenhydrAMINE 50 MG/ML INJ (BENADRYL) IV PRN (12:15)
[2022-07-16] MEDS ORDERED: CATHETER FLUSH 10 ML SYR IV SCH (14:00)
[2022-07-16] MEDS: HYDROcodone/APAP 5 MG/325 MG (LORTAB) TAB PO PRN (15:13)
--- NOTE | 2022-07-16 18:19 | OPERATIVE REPORT ---
PREOPERATIVE DIAGNOSES: 1. A 32-year-old at 39 weeks' gestation. 2. Previous section. POSTOPERATIVE DIAGNOSES: 1. A 32-year-old at 39 weeks' gestation. 2. Previous section. PROCEDURE: Repeat low transverse section. SURGEON: Daniel Carter DO ANESTHESIA: Spinal. ESTIMATED BLOOD LOSS: 500 mL URINE OUTPUT: 50 mL clear at the end of the procedure. FLUIDS: 1500 mL of lactated Ringer's solution. FINDINGS: A live female infant, weighing 7 pounds even. Apgars of 8 and 8. Grossly normal appearing uterus, bilateral fallopian tubes and ovaries. SPECIMEN SENT: None. INDICATIONS FOR PROCEDURE: This 32-year-old female is the patient who had sought care in my office. Her was only complicated by previous section. We decided to proceed with repeat . Risks of the procedure were discussed with the patient in detail including risk of bleeding, infection, damaging surrounding structures including but not limited to bowel, bladder, ureter, kidneys, possible need for reoperation, postoperative complications that may occur, recovery timeframe, risk from anesthesia and even . Everything was discussed with the patient in detail. A consent was obtained and the patient was taken to the operating room. OPERATIVE REPORT IN DETAIL: Once in the operating room, spinal analgesia was found to be adequate. She was placed in the supine position with leftward tilt, prepped and draped in normal sterile fashion. A timeout was performed. Anesthesia was tested. I then made a Pfannenstiel skin incision through a preexisting scar using knife and carried that down to the underlying fascia using Bovie cautery. The fascial incision extended laterally using Bovie cautery. The superior aspect of fascial incision was then grasped with Sarah clamps, tented upward, and dissected off the underlying rectus muscles. The inferior aspect of the fascial incision was then grasped with Sarah clamps, tented up and dissected off the underlying rectus muscles. The rectus muscle dissected down the midline sharply, which exposed the peritoneum, which I entered bluntly, extended using blunt traction. Mikey ring retractor was placed in the peritoneal incision, which offers excellent lateral sidewall retraction. I identified the lower uterine segment, found to be thinned out and make a low transverse incision to the vesicouterine peritoneum and bluntly dissected off the lower uterine segment, creating a bladder flap and then proceeded with my myotomy until membranes were visualized, at which point I extended the uterine incision laterally and superiorly using bandage scissors. Amniotomy was then performed using an Allis clamp. Clear fluid was noted. The infant was found in the vertex presentation with gentle fundal pressure, the infant's head elevated up to the incision where it was delivered through the incision. The nares and oropharynx were bulb suctioned. Anterior and posterior shoulders were delivered. The was brought to the operative field where cords were doubly clamped and cut and the infant was handed off to waiting nurses in attendance. Cord blood was collected. Three-vessel cord intact placenta delivered spontaneously thereafter. IV Pitocin was initiated to facilitate uterine contraction. Uterine fundus became manual massage. The uterus was then exteriorized and cleared of all endometrial clots and debris. I then proceeded with closing the uterine incision using 0 Vicryl suture in a running locked fashion. Second layer of imbricating 0 Monocryl was placed. Excellent hemostasis was noted after doing this. I then placed the uterus back in the pelvis and copiously irrigated the pelvis using normal saline. Once again, there was no active bleeding noted from any of my dissection planes. I placed Interceed antiadhesive over my low transverse incision. I removed the Mikey ring retractor and proceeded with closing the peritoneum using 3-0 Vicryl suture in a running fashion. The rectus muscles were reapproximated using 3-0 Vicryl suture in interrupted fashion. The fascia was reapproximated using 0 Vicryl suture in a running fashion and the skin was reapproximated using 4-0 Monocryl in a running subcuticular. Dermabond was applied to incision and sterile dressing with adhesive white tape. The patient tolerated the procedure well and was taken to recovery area in stable condition. Lap and sponge count was correct at the end of the procedure. Instrument counts correct as well. Two grams of Ancef were given preoperatively for infection prophylaxis. Job ID: [id number] DocumentID: [id number] Dictated Date: 07/16/2022 11:25:19 Disability Specialist Date: 07/16/2022 18:18:00 Dictated By: DO OVIDIO TINSLEY
[2022-07-16] MEDS: DOCUSATE SODIUM 100 MG (COLACE) CAP PO SCH (22:01)
[2022-07-17 02:30] VITALS: BP 118/67
[2022-07-17] MEDS ORDERED: SIMETHICONE 80 MG (MYLICON) CHEW ONE (02:34)
[2022-07-17] MEDS: KETOROLAC 30 MG/ML VIAL IV SCH (05:22)
[2022-07-17 05:25] VITALS: BP 119/71
[2022-07-17 05:41] LABS: BASOPHILS % (AUTO) 0 % (0-10); EOSINOPHILS # (AUTO) 0.1 10^3/uL (0.0-0.3); EOSINOPHILS % (AUTO) 1 % (0-10); HEMATOCRIT 26 % (35-52); HEMOGLOBIN 8.3 g/dL (11.5-16.0); LYMPHOCYTES # (AUTO) 1.4 10^3/uL (1.0-4.0); LYMPHOCYTES % (AUTO) 14 % (12-44); MEAN CORPUSCULAR HEMOGLOBIN 23 pg (25-34); MEAN CORPUSCULAR HGB CONC 32 g/dL (32-36); MEAN CORPUSCULAR VOLUME 73 fL (80-99); MONOCYTES # (AUTO) 0.5 10^3/uL (0.0-1.0); MONOCYTES % (AUTO) 5 % (0-12); NEUTROPHILS # (AUTO) 7.9 10^3/uL (1.8-7.8); NEUTROPHILS % (AUTO) 80 % (42-75); PLATELET COUNT 202 10^3/uL (130-400); WHITE BLOOD COUNT 9.9 10^3/uL (4.3-11.0)
--- NOTE | 2022-07-17 06:49 | Postpartum Progress Note ---
NELA LLOYD 07/17/22 0649: Note Note Day # 1 Subjective: Patient is without complaints. Ambulating, voiding. Tolerating a regular diet without nausea or vomiting. Normal lochia. Pain is well controlled with oral pain medications. Objective: Physical Exam: General - Alert and oriented, no apparent distress Cardio - RRR, no murmurs Pulm - CTAB Abdomen - Soft, appropriately tender to palpation, non-distended, fundus firm at umbilicus Extremities - no edema, negative Kesha's bilaterally Incision - Clean, dry and intact Assessment: Post- day # 1, status post section. Recovering well, hemodynamically stable Acute on chronic blood loss anemia Plan: Routine care. Encourage breast feeding. Encourage ambulation. Ferrous sulfate supplementation. Plan for discharge 07/18/2022 Vitals - Labs Vital Signs - I&O Vital Signs Date Time Temp Pulse Resp B/P (MAP) Pulse Ox O2 Delivery O2 Flow Rate FiO2 07/17/22 05:25 36.1 68 18 119/71 (87) 97 Room Air 07/17/22 02:30 36.2 67 18 118/67 (84) 96 Room Air 07/16/22 22:01 36.2 71 18 120/81 (94) 98 Room Air 07/16/22 16:00 36.4 64 18 116/74 (88) 99 Room Air 07/16/22 14:48 Room Air 07/16/22 13:09 35.7 55 16 108/76 (87) 99 Room Air 07/16/22 12:29 35.7 16 108/76 (87) 99 Room Air 07/16/22 12:14 35.6 16 106/71 (83) 96 Room Air 07/16/22 12:00 36.0 16 109/78 (88) 99 Room Air 07/16/22 11:40 36.2 16 112/80 (91) 99 Room Air 07/16/22 07:45 36.4 62 18 100 Room Air I & O 07/17/22 07:00 Intake Total 450 ml Output Total 605 ml Balance -155 ml Labs Laboratory Tests 07/16/22 08:48: White Blood Count 7.3, Red Blood Count 4.44, Hemoglobin 10.2L, Hematocrit 32L, Mean Corpuscular Volume 73L, Mean Corpuscular Hemoglobin 23L, Mean Corpuscular Hemoglobin Concent 32, Red Cell Distribution Width 15.1H, Platelet Count 222, Mean Platelet Volume 9.8, Immature Granulocyte % (Auto) 1, Neutrophils (%) (Auto) 72, Lymphocytes (%) (Auto) 21, Monocytes (%) (Auto) 5, Eosinophils (%) (Auto) 1, Basophils (%) (Auto) 0, Neutrophils # (Auto) 5.2, Lymphocytes # (Auto) 1.6, Monocytes # (Auto) 0.4, Eosinophils # (Auto) 0.1, Basophils # (Auto) 0.0, Immature Granulocyte # (Auto) 0.0, Sodium Level 135, Potassium Level 4.0, Chloride Level 105, Carbon Dioxide Level 20L, Anion Gap 10, Blood Urea Nitrogen 10, Creatinine 0.59L, Estimat Glomerular Filtration Rate 123, BUN/Creatinine Ratio 17, Glucose Level 74, Calcium Level 8.5, Corrected Calcium 9.1, Total Bilirubin 0.3, Aspartate Amino Transf (AST/SGOT) 15, Alanine Aminotransferase (ALT/SGPT) 7, Alkaline Phosphatase 120, Total Protein 6.4, Albumin 3.3 07/17/22 05:01: White Blood Count 9.9, Red Blood Count 3.61L, Hemoglobin 8.3L, Hematocrit 26L, Mean Corpuscular Volume 73L, Mean Corpuscular Hemoglobin 23L, Mean Corpuscular Hemoglobin Concent 32, Red Cell Distribution Width 15.1H, Platelet Count 202, Mean Platelet Volume 10.0, Immature Granulocyte % (Auto) 1, Neutrophils (%) (Auto) 80H, Lymphocytes (%) (Auto) 14, Monocytes (%) (Auto) 5, Eosinophils (%) (Auto) 1, Basophils (%) (Auto) 0, Neutrophils # (Auto) 7.9H, Lymphocytes # (Auto) 1.4, Monocytes # (Auto) 0.5, Eosinophils # (Auto) 0.1, Basophils # (Auto) 0.0, Immature Granulocyte # (Auto) 0.1 LIDIA BEVERLY DO 07/17/22 1053: Note Note Verification and Attestation of Medical Student E/M Service A medical student performed and documented this service in my presence. I reviewed and verified all information documented by the medical student and made modifications to such information, when appropriate. I personally performed the physical exam and medical decision making. Lidia Beverly, July 17, 2022,10:53 NELA LLOYD July 17, 2022 06:49 LIDIA BEVERLY DO July 17, 2022 10:53
[2022-07-17] MEDS ORDERED: SIMETHICONE 80 MG (MYLICON) CHEW PO SCH (09:00)
--- NOTE | 2022-07-17 09:03 | Anesthesia-Regional Post-Op ---
Regional Patient Condition Mental Status: Alert, Oriented x3 Circulation: Same as Pre-Op Headache: Absent Sensation: Full Recovery Motor Block: Absent Post Op Complications Complications None Follow Up Care/Instructions Patient Instructions None needed. Anesthesia/Patient Condition Patient is doing well, no complaints, stable vital signs, no apparent adverse anesthesia problems. No complications reported per nursing. TIM CAR CRNA July 17, 2022 09:03
[2022-07-17 11:26] VITALS: BP 129/74
[2022-07-17] MEDS: IBUPROFEN 600 MG (MOTRIN) TAB PO SCH ×3 (11:29→22:43)
[2022-07-17] MEDS: DOCUSATE SODIUM 100 MG (COLACE) CAP PO SCH ×2 (11:29→20:23)
[2022-07-17] MEDS: HYDROcodone/APAP 5 MG/325 MG (LORTAB) TAB PO PRN ×2 (14:13→20:24)
[2022-07-17 17:14] VITALS: BP 128/77
[2022-07-17 22:43] VITALS: BP 114/66
[2022-07-18 05:14] VITALS: BP 127/68
[2022-07-18] MEDS: IBUPROFEN 600 MG (MOTRIN) TAB PO SCH ×2 (05:15→11:17)
[2022-07-18 09:43] VITALS: BP 120/59
[2022-07-18] MEDS: DOCUSATE SODIUM 100 MG (COLACE) CAP PO SCH (09:44)
--- NOTE | 2022-07-18 10:21 | Postpartum Progress Note ---
Note Note Day # 2 Subjective: Patient is without complaints. Ambulating, voiding. Tolerating a regular diet without nausea or vomiting. Normal lochia. Pain is well controlled with oral pain medications. Breast feeding going well. Objective: Physical Exam: General - Alert and oriented, no apparent distress Breasts symmetrical no erythema or engorgement Abdomen - Soft, appropriately tender to palpation, non-distended, fundus firm at umbilicus Incision clean dry and intact w/o signs of infection Uterus firm midline and below umbilicus Lochia minimal Extremities - no edema, negative Kesha's bilaterally Assessment: post- day # 2, status post delivery. Recovering well, hemodynamically stable Plan: Routine care. Encourage breast feeding. Encourage ambulation. Ferrous sulfate supplementation. Plan for discharge 07/18/22 Follow up 1 wk. Vitals - Labs Vital Signs - I&O Vital Signs Date Time Temp Pulse Resp B/P (MAP) Pulse Ox O2 Delivery O2 Flow Rate FiO2 07/18/22 09:43 36.7 77 18 120/59 (79) 98 Room Air 07/18/22 05:14 36.9 72 18 127/68 (87) 97 Room Air 07/17/22 22:43 36.3 71 18 114/66 (82) 98 07/17/22 17:14 36.4 71 18 128/77 (94) 98 Room Air 07/17/22 11:26 36.7 75 18 129/74 (92) 98 Room Air LEX KURTZ DO July 18, 2022 10:21
== END 2022-07-18 11:45 | disposition home or self-care (01) | DRG 787 ==
LOC: LDRP 07:13
PROVIDERS: ADMIT Obstetrics & Gynecology; ATTEND Obstetrics & Gynecology
PROC: 10D00Z1 Extraction of Products of Conception, Low, Open Approach (ICD-10-PCS; principal; 2022-07-16 10:46)
DX: O34.211 Maternal care for low transverse scar from previous cesarean delivery (principal); D62 Acute posthemorrhagic anemia; Z3A.39 39 weeks gestation of pregnancy; Z37.0 Single live birth; O99.284 Endocrine, nutritional and metabolic diseases complicating childbirth; E03.9 Hypothyroidism, unspecified; O90.81 Anemia of the puerperium
CPT/HCPCS: 36415; 80053; 85025; 86850; 86900; 86901; 94664